=== PATIENT | female | born 1960 | race Caucasian/White ===

== ENCOUNTER 2019-04-17 11:32 | Day surgery (SDC) | payer MEDICAID, SELFPAY ==
[2019-04-16 13:34] VITALS: BMI 50.1
--- NOTE | 2019-04-16 13:48 | ANES.PREANE2 ---
Pre-Anesthetic Assessment Pre-Anesthetic Assessment: Height/Weight: Height 1.7 m Weight 145.15 kg Proposed Procedure: Operation Date: 04/17/19 13:15 Proposed Procedures p Median Nerve Release 87747 G56.03(Left) - Ezra Miller MD Was Beta Favian taken within 24 hours: N/A Social: Social History: No alcohol and No tobacco Exam: Pre-Anes Outpt Exam: alert, oriented x 3, clear to auscultation bilaterally and regular rate & rhythm Airway: Submandibular: WNL Cervical ROM: WNL MP: 2 Dentition: Full Pulmonary: Pulmonary: Asthma CV/HEM: CV/HEM: None reported : : None reported Hepatic: Hepatic: None reported GI: GI: None reported Metabolic: Metabolic: DM (Poorly controlled) and Morbid obesity Musc/skel: Musc/skel: Fibromyalgia and Weakness Anesthetic Plan: ASA status: 3 Anesthesia: MAC PFSH Anesthesia PFSH: Medical History (Updated 04/03/19 @ 12:57 by Ezra Miller MD) Benign essential hypertension Bilateral carpal tunnel syndrome Cerebrovascular accident COPD (chronic obstructive pulmonary disease) Diabetes mellitus GERD (gastroesophageal reflux disease) Hypothyroidism Infiltrating ductal carcinoma of left female breast Migraine Morbid obesity Other spondylosis with radiculopathy, lumbar region Sarcoidosis Surgical History (Updated 04/02/19 @ 15:16 by Ezra Miller MD) H/O bilateral oophorectomy H/O coronary angioplasty H/O: hysterectomy History of cholecystectomy Hx of appendectomy S/P CABG (coronary artery bypass graft) Family History (Updated 03/31/19 @ 13:50 by Zoey Aquino LPN) Father Cancer Diabetes Sister Cancer Diabetes Mother Diabetes Social History (Updated 03/31/19 @ 13:51 by Zoey Aquino LPN) Smoking and tobacco status: never smoked Alcohol intake: never Lives independently: Yes Marital status: Single Current occupational status: disabled History of recent travel: No Data Anesthesia Cardiac Studies: No Data to Display
[2019-04-17 12:09] VITALS: BP 176/118; PULSE 93; RESP 16; TEMP 37.6; O2SAT 96
[2019-04-17 12:24] LABS: Glucose Point of Care 326 mg/dL (70-110)
[2019-04-17] MEDS: sodium chloride 0.9% 1,000 ML 30 ML IV (12:29)
--- NOTE | 2019-04-17 12:39 | P.ANESUD_ITS ---
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 Gets radiation and has to do this surgery when her white count is higher, so would still like to proceed with surgery, given that she has this window of opportunity Last Intake: Intake Last Liquid Date 04/17/19 Last Liquid Time 07:00 Last Solid Date 04/16/19 Last Solid Time 17:00 Labs Last 48hrs: Laboratory Results - last 48 hr 04/17/19 12:17 POC Glucose 326 Vitals: Temperature 99.7 F H 04/17/19 12:09 Temperature Source Temporal Artery S can 04/17/19 12:09 Pulse Rate 93 04/17/19 12:09 Respiratory Rate 16 04/17/19 12:09 Blood Pressure 176/118 04/17/19 12:09 Blood Pressure Christen n 137 04/17/19 12:09 Pulse Oximetry 96 04/17/19 12:09 Oxygen Delivery Me thod 04/17/19 12:09 Exam: Pre-Anes Outpt Exam: alert, oriented x 3, clear to auscultation bilaterally and regular rate & rhythm Additional Exam Findings (including area of procedure): Severe claustrophbia - states she will fight when tied and panic with mask placement. Sever PADMA and has cold too. Coughing for 6 weeks now. Cardiac Studies: No Data to Display
[2019-04-17] MEDS: insulin regular-human 100 units/1 mL 10 UNIT IVP (13:05)
[2019-04-17] MEDS: vancomycin 1,000 MG in sodium chloride 0.9% 250 ML 250 MG IV (13:14)
--- NOTE | 2019-04-17 13:20 | W.PM.OPSUD ---
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
[2019-04-17 13:50] LABS: Glucose Point of Care 222 mg/dL (70-110)
--- NOTE | 2019-04-17 13:53 | SUR.PREOP ---
1200 Pt refused kashif hose and gripper socks,stated she doesn't wnat anything tight on her legs
--- NOTE | 2019-04-17 13:58 | P.OP_ITS ---
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
[2019-04-17] MEDS: neomycin-poly-bacitracin oint 28 gm 1 APPLIC TOPICAL (14:28)
[2019-04-17 14:49] VITALS: BP 98/63; PULSE 84; RESP 17; TEMP 36.7; O2SAT 96
[2019-04-17 14:55] VITALS: BP 111/68; PULSE 88; RESP 14; TEMP 36.7; O2SAT 96
[2019-04-17 15:02] VITALS: BP 116/72; PULSE 83; RESP 15; TEMP 36.6; O2SAT 98
[2019-04-17 15:17] VITALS: BP 106/79; PULSE 79; RESP 18; TEMP 36.6; O2SAT 98
[2019-04-17] MEDS: ondansetron 2 mg/ML SDV 2 mL 4 MG IVP (15:43)
--- NOTE | 2019-04-17 16:22 | SUR.PHASEII ---
1600 zofran effective for c/o nausea
--- NOTE | 2019-04-17 16:30 | PM.OP ---
Operative Report Date of procedure: April 17, 2019 Pre-op Diagnosis: Median nerve entrapment at the wrist Post-op diagnosis: same Procedure Done: Open release of the median nerve at the left wrist. Surgeon: Ezra Miller Anesthesia: General Estimated blood loss (mL): 5 IV fluids (mL): 300 Complications: none Condition: stable Disposition: PACU Brief History: The patient is a 58-year-old female with symptomatic, electrodiagnostically confirmed median nerve entrapment at the wrists. Electrodiagnostic studies demonstrated bilateral severe carpal tunnel syndrome. Symptoms progressed in spite of conservative management. After review of the diagnostic and treatment options with the risks/potential benefits/rationale for each, the patient requested to proceed with open release of the median nerve at the left wrist. Procedure: After routine preoperative evaluation and informed consent were obtained, the patient was taken to the Operating Room and positioned supine on the operating table. General anesthesia was recommended by the Anesthesia providers due to the patient's to severe anxiety, morbid obesity and respiratory issues. The patient was agreeable to this option. She was placed under general anesthesia by Anesthesia personnel and closely monitored during the procedure. The left upper extremity was extended on an arm board. The proposed palmar skin incision was marked with a sterile skin marker, beginning near the wrist crease and extending distally along a palmar crease to the mid palm. The left upper extremity was scrubbed with Betadine and prepped with DuraPrep from the fingertips to the axilla. A sterile stockinette was placed over the left upper extremity. The patient was draped with sterile towels and drapes. An opening was fashioned in the sterile stockinette over the palmar aspect of the left hand. Ioban surgical barrier was applied. The proposed incision site was infiltrated with 1% Xylocaine with Epinephrine. A skin incision was made with a sharp knife and carried down into the subcutaneous tissues. The markedly thickened transverse carpal ligament was identified and divided over the course of the median nerve in the palm. The nerve was directly visualized as the ligament was divided. Decompression was extended distally until the palmar fat pad was encountered. Proximally, the decompression was extended above the wrist crease utilizing fine Metzenbaum scissors. Decompression was verified to be adequate for a distance of greater than 2 centimeters proximal to the wrist crease. Extensive epineural adhesions were identified and were addressed with limited epineurolysis. At the completion of the decompression, no residual impingement or tethering of the median nerve was noted at the surgical site. The wound was then copiously irrigated with sterile saline and antibiotic irrigation. Hemostasis was ensured with the bipolar electrocautery. Wound closure was performed as a single layer utilizing 4-0 Nylon in a simple interrupted fashion. Antibiotic ointment was placed along the incision line. A bulky hand dressing was fashioned utilizing Kerlix fluffs, a Kerlix wrap, and an ANI/elastic bandage. The patient was awakened from general anesthesia, transferred onto the transport cart, and taken to the PACU for routine postoperative monitoring. The patient tolerated the procedure well. All sponge, needle and instrument counts were correct at the completion of the procedure.
== END 2019-04-17 16:20 | disposition home or self-care (01) ==
PROVIDERS: PCP Nurse Practitioner Family; Visit Provider Specialist
PROC: (CPT 64721; principal; 2019-04-17 13:05)
DX: G56.02 Carpal tunnel syndrome, left upper limb (principal); J45.909 Unspecified asthma, uncomplicated; E11.9 Type 2 diabetes mellitus without complications; M79.7 Fibromyalgia; I10 Essential (primary) hypertension; J44.9 Chronic obstructive pulmonary disease, unspecified; K21.9 Gastro-esophageal reflux disease without esophagitis; E03.9 Hypothyroidism, unspecified; E66.01 Morbid (severe) obesity due to excess calories; Z68.43 Body mass index [BMI] 50.0-59.9, adult; Z83.3 Family history of diabetes mellitus
CPT/HCPCS: 64721; 12345; 36416; 82962; 96365; 96374; 96375; J0330; J1815; J2001; J2405; J2704; J3010; J3370; J3490; J7030; J7050

== ENCOUNTER 2019-05-22 15:09 | Outpatient (CLI) | payer MEDICAID, SELFPAY ==
--- NOTE | 2019-05-22 15:17 | USCV_ITS ---
Liliam Reynaga Age: 58 Gender: F : 1960 Exam Date: 05/22/2019 15:29 Ordering Phys: Viviane Higgins MD Technologist: Chalo Tamez [place] [facility] [place]: HIGH RISK MEDS BP: 124 / 70 HR: 86 Rhythm: Sinus Technical Quality: Adequate MEASUREMENTS (Male / Female) Normal Values 2D ECHO LV Diastolic Diameter PLAX 5.2 cm 4.2 - 5.9 / 3.9 - 5.3 cm LV Systolic Diameter PLAX 3.3 cm IVS Diastolic Thickness 1.0 cm 0.6 - 1.0 / 0.6 - 0.9 cm IVS Systolic Thickness 1.7 cm LVPW Diastolic Thickness 1.3 cm 0.6 - 1.0 / 0.6 - 0.9 cm LVPW Systolic Thickness 1.2 cm LVOT Diameter 2.0 cm LV Ejection Fraction 2D Teich 67.3 % LV Ejection Fraction MOD 2C 47.7 % LV Ejection Fraction 2C AL 47.5 % LA Diameter 4.0 cm LA Width 3.9 cm LA Height 5.0 cm RA Width 3.4 cm RA Height 5.3 cm Aorta at Sinotubular Diameter 2.8 cm M-MODE LV Diastolic Diameter MM 6.4 cm 4.2 - 5.9 / 3.9 - 5.3 cm LV Systolic Diameter MM 4.8 cm LV Ejection Fraction MM Teich 48.1 % IVS Diastolic Thickness MM 1.3 cm 0.6 - 1.0 / 0.6 - 0.9 cm IVS Systolic Thickness MM 1.5 cm LVPW Diastolic Thickness MM 1.2 cm 0.6 - 1.0 / 0.6 - 0.9 cm LVPW Systolic Thickness MM 1.5 cm RV Diastolic Diameter MM 1.9 cm Aortic Annulus Diameter 3.0 cm LA Ao Ratio MM 1.4 MV E Point Septal Separation 1.1 cm DOPPLER AV Peak Velocity 167.0 cm/s LVOT Peak Velocity 92.0 cm/s AV Area Cont Eq vti 2.4 cm squared AV Area Cont Eq pk 1.8 cm squared MV Area PHT 5.8 cm squared Mitral E to A Ratio 1.0 MV E' Velocity 10.0 cm/s Mitral E to MV E' Ratio 7.5 Mitral E to LV E' Lateral Ratio 9.0 Mitral E to LV E' Septal Ratio 6.4 TR Peak Velocity 347.0 cm/s TR Peak Gradient 48.3 mmHg TV Peak E Velocity 138.0 cm/s Right Atrial Pressure 3.0 mmHg Pulmonary Artery Systolic Pressu 51.2 mmHg FINDINGS Left Ventricle Normal left ventricular cavity size. Normal left ventricular systolic function. No regional wall motion abnormalities. Left ventricular ejection fraction is estimated at 60 %. Grade I/IV diastolic dysfunction (abnormal relaxation filling pattern), normal to mildly elevated filling pressures. Right Ventricle The right ventricle is normal in size and function. Right Atrium The right atrium is normal in size. Left Atrium The left atrium is normal in size. Mitral Valve Structurally normal mitral valve without significant stenosis or prolapse. There is no mitral regurgitation. Aortic Valve Structurally normal aortic valve without significant sclerosis or stenosis. There is no aortic regurgitation. Tricuspid Valve Mild tricuspid valve regurgitation. Pulmonic Valve Structurally normal pulmonic valve without significant stenosis. There is no pulmonic regurgitation. Pericardium Normal pericardium without effusion. Aorta Normal ascending aorta dimension. CONCLUSIONS 1-Normal left ventricular cavity size. Normal left ventricular systolic function. No regional wall motion abnormalities. Left ventricular ejection fraction is estimated at 60 %. Grade I/IV diastolic dysfunction (abnormal relaxation filling pattern), normal to mildly elevated filling pressures. 2-Mild tricuspid valve regurgitation. 3-There is no pericardial effusion. 4-Right atrial pressure is around 5 mm of mercury. 5-No significant change since the prior echocardiogram study of 05/23/2013. Neville Morris MD (Electronically Signed) Final Date: 22 May 2019 17:52 S
== END 2019-05-22 15:10 | disposition home or self-care (01) ==
LOC: RAD 15:13
PROVIDERS: PCP Nurse Practitioner Family; Visit Provider Internal Medicine Medical Oncology
DX: Z79.899 Other long term (current) drug therapy (principal); I07.1 Rheumatic tricuspid insufficiency
CPT/HCPCS: 93306

== ENCOUNTER 2019-05-26 18:04 | Emergency (ER) | payer MEDICAID, SELFPAY ==
[2019-05-26 18:13] VITALS: BP 132/90; PULSE 88; RESP 18; TEMP 36.9; O2SAT 100; BMI 47.0
--- NOTE | 2019-05-26 18:44 | XR_ITS ---
WS: [id number] KNEE LEFT TECHNIQUE: 3 views of the left knee CLINICAL INFORMATION: trauma/fall COMPARISON: None. FINDINGS: Moderate degenerative arthritis medial compartment narrowing. Hypertrophic changes along the joint li ne. Soft tissue edema. Suprapatellar effusion. Hypertrophic patella. XR/XR knee LT 3V* [id number] IMPRESSION: 1. Moderate degenerative arthritis medial joint compartment and patellofemoral articulation. 2. Soft tissue edema with suprapatellar effusion. 3. No acute fractures
--- NOTE | 2019-05-26 18:44 | XR_ITS ---
WS: [id number] HIP WITH PELVIS LEFT TECHNIQUE: 3 views of the left hip with pelvis CLINICAL INFORMATION: trauma/fall COMPARISON: None. FINDINGS: Both hips are normal in appearance. Left hip is normal. Normal pubic rami. Degenerative arthritis low er lumbar spine. Surgical clips pelvic inlet. XR/XR hip LT 2-3V wo/w pel* [id number] IMPRESSION: Normal left hip
--- NOTE | 2019-05-26 18:44 | W.ED.FALL ---
HPI - Fall General: Chief Complaint: Fall Stated Complaint: KNEE, HIP PAIN Time Seen by Provider: 05/26/19 18:35 Source: patient Mode of arrival: EMS Limitations: no limitations History of Present Illness: HPI Narrative: Patient is a 58-year-old female who presents to ED today with complaints of left knee and left hip pain that she sustained following a fall. Patient states her cane got caught on the carpet causing her to fall. Patient denies striking her head, LOC, neck pain. She suffers from chronic back pain but this is not worse than her baseline. Patient denies any other injuries. MD complaint: fall Onset (ago): hour(s) Fall from: standing Fall witnessed: no Place fall occurred: home Loss of consciousness: None Prolonged down time: no Symptoms prior to fall: none Context: tripped/slipped Location of injury - extremities: Left: knee Severity: severe Associated symptoms-after fall: Reports no associated symptoms; Denies abdominal pain, chest pain, headache(s), lightheadedness or neck pain Review of Systems Eyes: Denies: change in vision or blurry vision Card: Denies: chest pain, palpitations, irregular heart rhythm, edema, lightheadedness, syncope or pre-syncope Resp: Denies: shortness of breath GI: Denies: abdominal pain Musc: Reports: back pain (chronic) and joint pain (L knee/hip); Denies: neck pain Neuro: Denies: headache, numbness in extremities, weakness in extremities or changes in sensation PFS ED PFSH: Medical History (Updated 05/26/19 @ 19:44 by MARCOS Connell) Benign essential hypertension Bilateral carpal tunnel syndrome Cerebrovascular accident COPD (chronic obstructive pulmonary disease) Diabetes mellitus GERD (gastroesophageal reflux disease) Hypothyroidism Infiltrating ductal carcinoma of left female breast Migraine Morbid obesity Other spondylosis with radiculopathy, lumbar region Sarcoidosis Surgical History (Updated 04/02/19 @ 15:16 by Ezra Miller MD) H/O bilateral oophorectomy H/O coronary angioplasty H/O: hysterectomy History of cholecystectomy Hx of appendectomy S/P CABG (coronary artery bypass graft) Family History (Updated 03/31/19 @ 13:50 by Zoey Aquino LPN) Father Cancer Diabetes Sister Cancer Diabetes Mother Diabetes Social History (Updated 03/31/19 @ 13:51 by Zoey Aquino LPN) Smoking and tobacco status: never smoked Alcohol intake: never Lives independently: Yes Marital status: Single Current occupational status: disabled History of recent travel: No Physical Exam Const: COMMON NORMALS: oriented x3, no limitations and alert GENERAL APPEARANCE: in distress (in pain) NUTRITIONAL APPEARANCE: obese morbidly obese HENMT: COMMON NORMALS: normocephalic and head/scalp atraumatic HEAD & SCALP: normocephalic and atraumatic Neck/C-Spine: COMMON NORMALS: full ROM CERVICAL SPINE: Yes cervical ROM normal, No pain with cervical ROM, No cervical spine tenderness and No paracervical muscle tenderness Chest: COMMONS NORMALS: inspection of chest normal and palpation of chest normal Resp: COMMON NORMALS: normal respiratory effort and clear to auscultation bilaterally AUSCULTATION: clear to auscultation bilaterally Cardio: COMMON NORMALS: regular rate and regular rhythm RATE: regular rate RHYTHM: regular rhythm Back/Pelvis: OTHER: chronic lower lumbar pain-states this is at baseline Extremity: LEFT LOWER EXTREMITY: Yes knee joint (TTP/swelling/bruising noted to L anterior knee) OTHER: TTP L posterior hip; exam limited due to pts body habitus Neuro: COMMON NORMALS: oriented x3 SENSORIUM/ORIENTATION: Yes alert Course Vital Signs: Vital signs: Vital Signs Temperature 98.5 F 05/26/19 18:13 Pulse Rate 88 05/26/19 18:13 Respiratory Rate 18 05/26/19 19:11 Blood Pressure 132/90 05/26/19 18:13 Pulse Oximetry 100 05/26/19 18:13 MDM - Fall Imaging Data^: L hip/pelvis: My impression: NAD L knee XR: My impression: NAD Discharge Plan Discharge Patient Disposition: Home, Self-Care Clinical Impression: Fall on same level from tripping, Acute pain of left hip Contusion of left knee Qualifiers: Encounter type: initial encounter Qualified Code(s): S80.02XA - Contusion of left knee, initial encounter Condition: Stable Prescriptions: No Action valacyclovir 1 gram tablet 2,000 mg PO Q12H RF: 0 torsemide 5 mg tablet 10 mg PO DAILY PRN (Reason: Edema) RF: 0 albuterol sulfate 0.63 mg/3 mL solution for nebulization 0.63 mg INHALATION Q6H PRN (Reason: Shortness Of Breath Or Wheezing) RF: 0 furosemide [Lasix] 40 mg tablet 40 mg PO DAILY PRN (Reason: Edema) RF: 0 hydromorphone 2 mg Tablet 2 mg PO TID PRN (Reason: Pain, Mild) RF: 0 Lantus U-100 Insulin 100 unit/mL Solution 72 unit SUBCUT DAILY RF: 0 metformin 1,000 mg Tablet Extended Release 24hr 1,000 mg PO DAILY RF: 0 Humalog Mix 75-25 KwikPen liquid See Rx Instructions .ROUTE .COMPLEX RF: 0 Discharge Orders: Discharge Order (Routine); Ordered 05/26/19 Ordered By: Tiny Kenyon Referrals: [facility] [Other] Luis Eduardo Huerta NP [Primary Care Provider] - Activity Restrictions/Additional Instructions: Weightbearing as tolerated. Can continue your normal home pain medications. Please follow-up with your primary care provider in a week for continued pain. Coding Level of Care Code ED Water Conservation Specialist for Zevg Fwd Exam Detailed
[2019-05-26 19:11] VITALS: RESP 18
[2019-05-26] MEDS: HYDROmorphone 1 mg/mL INJ 1 mL SUBCUT (19:11)
[2019-05-26 20:38] VITALS: BP 142/88; PULSE 90; RESP 20; O2SAT 94
== END 2019-05-26 20:39 | disposition home or self-care (01) ==
PROVIDERS: Emergency Provider Physician Assistant; PCP Nurse Practitioner Family
DX: S80.02XA Contusion of left knee, initial encounter (principal); W01.0XXA Fall on same level from slipping, tripping and stumbling without subsequent striking against object, initial encounter; Z79.4 Long term (current) use of insulin; M25.552 Pain in left hip; I10 Essential (primary) hypertension; Z09 Encounter for follow-up examination after completed treatment for conditions other than malignant neoplasm; Z86.73 Personal history of transient ischemic attack (TIA), and cerebral infarction without residual deficits; J44.9 Chronic obstructive pulmonary disease, unspecified; E11.9 Type 2 diabetes mellitus without complications; Z98.61 Coronary angioplasty status; Z95.1 Presence of aortocoronary bypass graft
CPT/HCPCS: 12345; 73502; 73562; 96372; 99281; 99284; J1170

== ENCOUNTER → 2019-06-12 12:59 | Outpatient (BNVA) | payer MEDICAID, SELFPAY | PROVIDERS: PCP Nurse Practitioner Family; Visit Provider Podiatrist Foot & Ankle Surgery | DX: M79.672 Pain in left foot (principal) | CPT/HCPCS: 73630 ==

== ENCOUNTER 2019-06-12 13:50 | Outpatient (CLI) | payer MEDICAID, SELFPAY ==
--- NOTE | 2019-06-12 14:18 | XR_ITS ---
WS: [id number] LEFT FOREARM 2 VIEWS HISTORY: ARM PAIN, LEFT COMPARISON: None available. No fracture or dislocation. No foreign body or joint effusion. Diffuse soft tissue edema over the posterior forearm. XR/XR forearm LT 2V [id number] IMPRESSION: Soft tissue edema. No fracture.
--- NOTE | 2019-06-12 14:18 | XR_ITS ---
WS: [id number] LEFT ELBOW: 3 VIEW(S) TECHNIQUE: AP, oblique and lateral. HISTORY: ARM PAIN, LEFT COMPARISON: None available. No acute fractures or dislocation. Well-corticated osteophyte or prior injury along the lateral epico ndyle. Not likely an acute fracture. No joint effusion. Diffuse soft tissue edema over the posterior elbow. XR/XR elbow LT min 3V* [id number] IMPRESSION: Soft tissue edema. No fracture.
--- NOTE | 2019-06-12 14:18 | XR_ITS ---
WS: [id number] LEFT HUMERUS: 2 VIEW(S) TECHNIQUE: AP and lateral. HISTORY: LEFT ARM PAIN COMPARISON: 10/30/2016 Radiographs are limited by patient's clinical condition and inability to move. No acute fracture or dislocation. No joint or soft tissue abnormality. No foreign bodies and visualized upper thorax is unremarkable. XR/[place] [id number] IMPRESSION: Normal LEFT humerus.
== END 2019-06-12 13:51 | disposition home or self-care (01) ==
LOC: RAD 13:52
PROVIDERS: PCP Nurse Practitioner Family; Visit Provider Nurse Practitioner Family
DX: M79.602 Pain in left arm (principal); R60.9 Edema, unspecified
CPT/HCPCS: 73060; 73080; 73090

== ENCOUNTER 2019-07-07 11:48 | Day surgery (SDC) | payer MEDICAID, SELFPAY ==
[2019-07-04 14:44] VITALS: BMI 49.6
[2019-07-07] VITALS (8 sets, daily range): BP systolic 111–146; BP diastolic 77–99; PULSE 79–87; RESP 10–22; TEMP 36.3–36.6; O2SAT 92–98
--- NOTE | 2019-07-07 12:35 | P.HPUD_ITS ---
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
--- NOTE | 2019-07-07 13:02 | ANES.PREANE2 ---
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 Proposed Procedure: Operation Date: 07/07/19 13:15 Proposed Procedures p Open release of the median nerve at the right wrist (34942) G56.03(Right) - Ezra Miller MD Familial anesthetic complications: awareness during her gallbladder surgery Was Beta Favian taken within 24 hours: N/A Last intake: NPO > 8 hrs Social: Social History: No alcohol and No tobacco Exam: Pre-Anes Outpt Exam: alert, oriented x 3, clear to auscultation bilaterally and regular rate & rhythm Airway: Cervical ROM: WNL MP: 2 Dentition: Other Additional comments: Nosebleeds and congestion (b/L from chemo) Pulmonary: Pulmonary: Asthma (With mulitple exacerbations) CV/HEM: CV/HEM: CHF and HTN : : None reported Hepatic: Hepatic: None reported GI: GI: None reported Metabolic: Metabolic: DM, Morbid obesity and Thyroid Neuropsych: Neuropsych: CVA (receptive aphasia, L sided weakness, speech impiarment) and TIA Anesthetic Plan: ASA status: 3 Anesthesia: General Risk of > 500 ml blood loss (7ml/kg in children): No PFSH Anesthesia PFSH: Medical History (Updated 06/16/19 @ 20:56 by Austin Ledesma DPM) Benign essential hypertension Bilateral carpal tunnel syndrome Cerebrovascular accident Chronic fatigue COPD (chronic obstructive pulmonary disease) Diabetes mellitus DJD (degenerative joint disease) GERD (gastroesophageal reflux disease) Hypothyroidism Infiltrating ductal carcinoma of left female breast Lymphadenopathy Migraine Morbid obesity Other spondylosis with radiculopathy, lumbar region Sarcoidosis Surgical History H/O bilateral oophorectomy H/O coronary angioplasty H/O: hysterectomy History of cholecystectomy Hx of appendectomy S/P CABG (coronary artery bypass graft) Family History Father Cancer Diabetes Sister Cancer Diabetes Mother Diabetes Social History Smoking and tobacco status: never smoked Alcohol intake: never Lives independently: Yes Marital status: Single Current occupational status: disabled History of recent travel: No Data Anesthesia Cardiac Studies: No Data to Display
[2019-07-07] MEDS: sodium chloride 0.9% 1,000 ML 30 ML IV (13:04)
[2019-07-07 13:21] LABS: Basophils % 0.3 %; Eosinophils # 0.2 10^3/uL (0.0-0.8); Eosinophils % 2.3 %; Hematocrit 40.5 % (37.0-47.0); Hemoglobin 12.4 g/dL (11.5-15.3); Lymphocytes % 14.8 %; Mean Corpuscular HGB Conc 30.6 g/dL (30.0-36.0); Mean Corpuscular Hemoglobin 26.8 pg (28.0-34.0); Mean Corpuscular Volume 87.5 fL (81-99); Mean Platelet Volume 8.9 fL (7.4-10.4); Monocytes # 0.6 10^3/uL (0.2-0.9); Monocytes % 8.8 %; Neutrophils # 4.7 10^3/uL (1.8-7.7); Neutrophils % 73.2 %; Nucleated Red Blood Cells % 0 %; Platelet Count 212 10^3/cmm (130-400); Red Blood Count 4.63 10^6/uL (4.1-5.3); Red Cell Distribution Width 14.9 % (12.1-15.1); White Blood Count 6.5 10^3/uL (4.0-10.0)
--- NOTE | 2019-07-07 13:23 | P.OP_ITS ---
Brief Operative Note: Date of procedure: 07/07/19 Pre-op diagnosis: Median nerve entrapment at the right wrist Post-op diagnosis: same Procedure Done: Open Release of median nerve at right wrist. Surgeon: Ezra Miller Estimated blood loss (mL): 5 Complications: None Post-op Plan: Home per Ambulatory Surgery protocol. Condition: stable Disposition: PACU Coding Level of Care Code Acute Tobacco Wetter for Hector Aguirre
[2019-07-07] MEDS: midazolam 1 mg/mL INJ 2 mL 2 MG IVP (13:25)
[2019-07-07] MEDS: neomycin-poly-bacitracin oint 28 gm 1 APPLIC TOPICAL (14:06)
--- NOTE | 2019-07-07 14:33 | SUR.PHASEI ---
1431 PATIENT TO PACU AT THIS TIME FROM OR. RR EVEN AND UNLABORED. PLACED ON SIMPLE MASK AT 8L, SPO2 98%. DRESSING CDI TO RIGHT WRIST WITH ANI WRAP AND SLING IN PLACE.
--- NOTE | 2019-07-07 14:53 | SUR.PHASEI ---
1450 PATIENT TO OPS AT THIS TIME. RR EVEN AND UNLABORED. DRESSING INTACT TO RIGHT WRIST WITH SLING IN PLACE.
[2019-07-07 15:05] LABS: Glucose Point of Care 146 mg/dL (70-110)
--- NOTE | 2019-07-07 16:14 | PM.OP ---
Operative Report Date of procedure: July 07, 2019 Pre-op Diagnosis: Median nerve entrapment at the wrist Post-op diagnosis: same Procedure Done: Open release of the median nerve at the right wrist. Implants: none Specimens removed/disposition: none Pathology: none sent Surgeon: Ezra Miller Anesthesia: General Estimated blood loss (mL): 5 IV fluids (mL): 200 Complications: None. Condition: stable Disposition: PACU Brief History: The patient is a 58-year-old female with symptomatic, electrodiagnostically confirmed bilateral carpal tunnel syndrome. Symptoms progressed and were refractory to conservative treatment measures. She underwent open release of the median nerve at the left wrist on 04/17/2019. After review of the diagnostic and treatment options with the risks/potential benefits/rationale for each, the patient requested to proceed with open release of the median nerve at the right wrist. Procedure: After routine preoperative evaluation and informed consent were obtained, the patient was taken to the Operating Room and positioned supine on the operating table. She was placed under general endotracheal anesthesia by Anesthesia personnel due to severe anxiety and refusal/inability to tolerate the procedure under sedation. The right upper extremity was extended on an arm board. A proposed incision was marked with a sterile skin marker. The extremity was scrubbed with Betadine and prepped with DuraPrep from the fingertips to the axilla. Sterile towels, sterile drapes, and a sterile stockinette were utilized for draping of the operative field. An opening was fashioned in the sterile stockinette over the palmar aspect of the right hand. An [place] surgical barrier was placed. The proposed incision site was infiltrated with 1% Xylocaine with Epinephrine. A skin incision was made and carried down into the subcutaneous tissues. Self-retaining retractors were placed. The markedly thickened transverse carpal ligament was divided over the course of the median nerve in the palm. The ligament was divided distally until the palmar fat pad was encountered. Proximally, the ligament was divided with fine Metzenbaum scissors to a point approximately 2 centimeters above the wrist crease. There were mild diffuse epineural adhesions, which were treated with limited adhesiolysis. There was no evidence of residual median nerve impingement or entrapment within the visualized segment of the nerve at the completion of the procedure. The wound was then copiously irrigated with antibiotic irrigation. Hemostasis was ensured with the bipolar electrocautery. Wound closure was performed as a single layer utilizing 4-0 Nylon in a simple interrupted fashion. Antibiotic ointment was placed along the incision line. A bulky hand dressing was fashioned utilizing a combination of Kerlix fluffs, a Kerlix wrap, and an ANI/elastic bandage. The patient was transported to the Ambulatory Surgery Area for discharge home, as per the Ambulatory Surgery protocol. The patient tolerated the procedure well. All sponge, needle, and instrument counts were correct at the completion of the procedure.
== END 2019-07-07 15:44 | disposition home or self-care (01) ==
PROVIDERS: PCP Nurse Practitioner Family; Visit Provider Specialist
PROC: (CPT 64721; principal; 2019-07-07 13:15)
DX: G56.01 Carpal tunnel syndrome, right upper limb (principal); J45.909 Unspecified asthma, uncomplicated; I11.0 Hypertensive heart disease with heart failure; I50.9 Heart failure, unspecified; E11.9 Type 2 diabetes mellitus without complications; E66.01 Morbid (severe) obesity due to excess calories; Z68.42 Body mass index [BMI] 45.0-49.9, adult; I69.854 Hemiplegia and hemiparesis following other cerebrovascular disease affecting left non-dominant side; J44.9 Chronic obstructive pulmonary disease, unspecified; E03.9 Hypothyroidism, unspecified; Z95.1 Presence of aortocoronary bypass graft; M19.90 Unspecified osteoarthritis, unspecified site; G47.33 Obstructive sleep apnea (adult) (pediatric); Z87.891 Personal history of nicotine dependence
CPT/HCPCS: 64721; 12345; 36416; 82962; 85025; 96365; 96374; J0330; J2001; J2250; J2405; J2704; J3010; J3370; J3490; J7030; J7050; T1015-U1

== ENCOUNTER 2019-08-14 15:03 | Outpatient (CLI) | payer MEDICAID, SELFPAY ==
--- NOTE | 2019-08-14 | XRR_ITS ---
PROCEDURE INFORMATION: Exam: XR Right Knee Exam date and time: 08/14/2019 4:25 PM Age: 59 years old Clinical indication: Pain; Knee; Right; Additional info: Joint pain TECHNIQUE: Imaging protocol: XR Right knee. Views: 3 views. COMPARISON: US SoftTissue/Extrem Lmt [id number] 08/21/2017 12:59 PM FINDINGS: Bones/joints: Negative for acute bony abnormality. There is narrowing of the medial compartment consistent with osteoarthritis. Soft tissues: Normal. XR/XR knee RT 3V* [id number] IMPRESSION: No acute findings. Mild osteoarthritis
== END 2019-08-14 15:04 | disposition home or self-care (01) ==
PROVIDERS: PCP Nurse Practitioner Family; Visit Provider Nurse Practitioner Family
DX: M25.561 Pain in right knee (principal); M17.11 Unilateral primary osteoarthritis, right knee
CPT/HCPCS: 73562

== ENCOUNTER 2019-09-03 18:09 | Emergency (ER) | payer MEDICAID, SELFPAY ==
[2019-09-03 18:23] VITALS: BP 155/89; PULSE 95; RESP 16; TEMP 36.3; O2SAT 97; BMI 50.5
--- NOTE | 2019-09-03 18:35 | ED_ITS ---
HPI - Fall General: Chief Complaint: Fall Stated Complaint: fall Time Seen by Provider: 09/03/19 18:34 History of Present Illness: HPI Narrative: Patient is a 59-year-old female comes to the ED with right knee pain, right flank pain, dysuria and diarrhea after having a fall. Patient has a past medical history of hypertension, CVA with residual right sided weakness, breast cancer left side with left side masectomy, GERD, diabetes and COPD. Fall occurred 4 days ago. Fall happened when she was transferring out of her vehicle. She twisted her right knee and fell straight down and her right flank hit seat in part of the car. She now has moderate to severe pain in her right knee and in her right flank/kidney area. Ever since her fall she has had diarrhea. In the last 24 hours, she started having some dysuria. Denies any blood in the urine. Associated symptoms-after fall: Denies abdominal pain, chest pain, headache(s), hematuria or neck pain Review of Systems Const: Denies: fever(s), chills or fatigue Eyes: Denies: change in vision or eye discomfort ENMT: Denies: throat pain, odynophagia, nasal discharge or nasal congestion Card: Denies: chest pain, palpitations, edema, swelling of feet/ankles, dyspnea on exertion or orthopnea Resp: Denies: dyspnea, productive cough or non-productive cough GI: Reports: diarrhea; Denies: abdominal pain, nausea, vomiting, constipation or hematochezia : Reports: flank pain (right side) and dysuria; Denies: hematuria Musc: Reports: extremity pain (right knee) and joint pain (right knee); Denies: neck pain, back pain or extremity swelling Skin/Breast: Denies: rash or new lesions Neuro: Denies: headache(s), numbness in extremities or weakness in extremities PFSH ED PFSH: Medical History Benign essential hypertension Bilateral carpal tunnel syndrome Cerebrovascular accident Chronic fatigue COPD (chronic obstructive pulmonary disease) Diabetes mellitus DJD (degenerative joint disease) GERD (gastroesophageal reflux disease) Hypothyroidism 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 07/07/2019 Dr. Emily Miller. Open release of the median nerve at the right wrist. Family History Father Cancer Diabetes Sister Cancer Diabetes Mother Diabetes Social History Smoking and tobacco status: never smoked Alcohol intake: never Lives independently: Yes Marital status: Single Current occupational status: disabled History of recent travel: No Physical Exam Const: COMMON NORMALS: patient oriented x3 and alert GENERAL APPEARANCE: cooperative; not comfortable (Uncomfortable due to pain.) NUTRITIONAL APPEARANCE: obese morbidly obese HENMT: COMMON NORMALS: normocephalic HEAD & SCALP: normocephalic MOUTH: Normal oral and palatal mucosa present THROAT: posterior oropharynx normal and uvula midline Eye: COMMON NORMALS: Equal, round and reactive pupils present PUPIL: Yes Equal, round and reactive pupils present Neck/C-Spine: COMMON NORMALS: supple GENERAL: Yes normal visual inspection Resp: COMMON NORMALS: normal respiratory effort, No retractions, No use of accessory muscles and clear to auscultation bilaterally AUSCULTATION: clear to auscultation bilaterally Cardio: COMMON NORMALS: regular rate, regular rhythm, S1 normal heart sound present, S2 normal heart sound present, No gallops present (Cardio), No clicks present (Cardio), No murmurs present (Cardio) and Peripheral pulses 2+ throughout RATE: regular rate RHYTHM: regular rhythm HEART SOUNDS: S1 normal heart sound present and S2 normal heart sound present PERIPHERAL PULSES: Peripheral pulses 2+ throughout GI: COMMON NORMALS: Normal to inspection, nondistended, normoactive bowel sounds present, Soft to palpation, non-tender and no masses PALPATION: Yes Soft to palpation : BLADDER/KIDNEY EXAM: Yes CVA tenderness on the right Back/Pelvis: GENERAL BACK: Yes CVA tenderness Extremity: RIGHT LOWER EXTREMITY: Yes knee joint Right knee: Yes inspection (Some mild edema around the right knee. No ecchymosis seen.), Yes palpation (Tender on medial aspect of right knee and over meniscus.), Yes ROM (Limited due to pain) and Yes neurovascular exam (intact) Neuro: COMMON NORMALS: patient oriented x3 and moves all extremities SENSORIUM/ORIENTATION: Yes alert Skin: GENERAL SKIN EXAM: dry skin Course Vital Signs: Vital signs: Vital Signs Temperature 97.9 F 09/03/19 23:11 Pulse Rate 60 09/03/19 23:11 Respiratory Rate 16 09/03/19 23:11 Blood Pressure 132/76 09/03/19 23:11 Pulse Oximetry 98 09/03/19 23:11 MDM - Fall MDM Narrative: Medical decision making narrative: Patient is a 59-year-old female who comes to the ED with right knee and right flank pain after a fall. Patient has a past medical history of breast cancer, prior stroke with residual right-sided weakness, diabetes, COPD and obesity. Patient also describes having some dysuria and diarrhea as well. Right knee x-ray was performed and showed no acute fractures or findings. CT of the abdomen showed no acute findings but did notate a hypodense lesion on the liver. I discussed CT findings and the lesion on the liver with the patient and I told her to contact her oncologist tomorrow about findings. Patient was also sent home with a CD of CT images to give to oncologist. White blood cells were 7.1 today. UA showed some white blood cells, bacteria and RBCs, so combined with her dysuria symptoms I am going to treat her for UTI. Patient was given a prescription for Macrobid. I told patient to follow-up with her PCP in 5 to 7 days for reevaluation. I told patient that right knee x-ray ruled out any fractures but she might need further outpatient imaging to rule out any soft tissue damage to right knee, which can be coordinated by PCP. Patient understood and agreed with plan. Return to ED precautions given. Lab Data: Attestation: I reviewed the patient's lab results. Labs: Lab Results 09/03/19 09/03/19 09/03/19 Range/Units 19:40 19:40 20:00 WBC 7.1 (4.0-10.0) 10^3/ uL RBC 5.03 (4.1-5.3) 10^6/u L Hgb 13.5 (11.5-15.3) g/dL Hct 43.0 (37.0-47.0) % MCV 85.5 (81-99) fL MCH 26.8 L (28.0-34.0) pg MCHC 31.4 (30.0-36.0) g/dL RDW 15.8 H (12.1-15.1) % Plt Count 224 (130-400) 10^3/c mm MPV 9.1 (7.4-10.4) fL Neut % (Auto) 73.0 % Lymph % (Auto) 17.7 % Mcclain % (Auto) 6.9 % Eos % (Auto) 1.4 % Baso % (Auto) 0.3 % Neut # (Auto) 5.16 (1.8-7.7) 10^3/u L Lymph # (Auto) 1.3 (0.8-4.8) 10^3/u L Mcclain # (Auto) 0.5 (0.2-0.9) 10^3/u L Eos # (Auto) 0.1 (0.0-0.8) 10^3/u L Baso # (Auto) 0.0 (0.0-0.1) 10^3/u L Nucleated RBC % (a uto) 0 % Nucleated RBCs # 0.0 /100WBC Sodium 139 (136-145) mmol/L Potassium 4.1 (3.5-5.1) mmol/L Chloride 98 (98-107) mmol/L Carbon Dioxide 29 (22-29) mmol/L Anion Gap 16.1 (5-19) BUN 23 H (6-20) mg/dL Creatinine 1.0 H (0.5-0.9) mg/dL GFR Calculation 56.9 L (90-130) mL/min Glucose 304 H (65-115) mg/dL Calculated Osmolal ity 296 H (285-295) mOsm/k g Calcium 9.8 (8.5-10.5) mg/dL Total Bilirubin 0.2 (0.15-1.2) mg/dL AST 12 (0-32) U/L ALT 25 (0-33) U/L Alkaline Phosphata se 112 H (35-105) IU/L Total Protein 7.1 (6.6-8.7) g/dL Albumin 4.0 (3.5-5.2) g/dL Globulin 3.1 (1.3-4.6) g/dL Urine Color Yellow (Yellow) Urine Appearance Hazy A (CLEAR) Urine pH 5 (5-7) Ur Specific Gravit y 1.020 (1.005-1.030) Urine Protein Neg (Negative) Urine Glucose (UA) Norm (Normal) Urine Ketones Negative (Negative) Urine Blood Neg (Negative) Urine Nitrate Negative (Negative) Urine Bilirubin Neg (NEGATIVE) Urine Urobilinogen Norm (Negative) mg/dL Ur Leukocyte Colleen ase 2+ H (Negative) Urine RBC 0-4 H (0-2) /hpf Urine WBC 10-15 H (0-5) /hpf Ur Squamous Epith Cells 10-15 H (0-5) Amorphous Sediment Not Reportable Urine Bacteria 1+ H (NONE) Hyaline Casts 80-100 H Imaging Data^: Xray Ortho: Attestation: I personally reviewed and interpreted this imaging study as follows: Radiologist's impression: [place] [address] XRay Report Signed Patient: Liliam Reynaga Unit #: [id number] : 1960 Age/Sex: 59 / F ADM Date: 09/03/19 Loc: ER Room/Bed: Attending Dr: Ordering Provider/Ordering MD: Rodrigo Fairchild Date of Service: 09/03/19 Procedure(s): XR knee RT 3V* [id number] Accession Number(s): [id number] Report Number: [id number] PROCEDURE INFORMATION: Exam: XR Right Knee Exam date and time: 09/03/2019 7:30 PM Age: 59 years old Clinical indication: Injury or trauma; Fall; Initial encounter; Blunt trauma; Knee; Right; Additional info: Fall injury with pain TECHNIQUE: Imaging protocol: XR Right knee. Views: 3 views. COMPARISON: CR XR knee RT 3V* [id number] 08/14/2019 4:15 PM FINDINGS: Moderate osteoarthritis changes are noted, which are most prominent in the medial joint space where joint space narrowing, eburnation and osteophytosis are observed. No fracture or dislocation. XR/XR knee RT 3V* [id number] IMPRESSION: No fracture or dislocation. Moderate osteoarthritis. Dictated By: Ezra Lazcano MD Signed By: Ezra Lazcano MD Signed Date/Time: 09/03/192046 DD/ 45 CT Abd/Pel: Attestation: I personally reviewed and interpreted this imaging study as follows: Radiologist's impression: [facility] [address] [place] [address] CT Scan Report Signed Patient: Liliam Reynaga Unit #: [id number] : 1960 Age/Sex: 59 / F ADM Date: 0 Loc: ER Room/Bed: Attending Dr: Ordering Provider/Ordering MD: Rodrigo Fairchild Date of Service: 09/03/19 Procedure(s): CT abdomen pelvis w con* [id number] Accession Number(s): [id number] Report Number: [id number] PROCEDURE INFORMATION: Exam: CT Abdomen And Pelvis With Contrast Exam date and time: 09/03/2019 7:55 PM Age: 59 years old Clinical indication: Abdominal pain; Prior surgery; Additional info: Right flank pain and R CVA tenderness with dysuria, diarrhea TECHNIQUE: Imaging protocol: Computed tomography of the abdomen and pelvis with intravenous contrast. Radiation optimization: All CT scans at this facility use at least one of these dose optimization techniques: automated exposure control; mA and/or kV adjustment per patient size (includes targeted exams where dose is matched to clinical indication); or iterative reconstruction. Contrast material: OMNI 300; Contrast volume: 95 ml; Contrast route: INTRAVENOUS (IV); COMPARISON: CT abdomen pelvis w con* [id number] 08/13/2017 12:02 PM RADIATION DOSE METRICS: Total DLP (mGy-cm): 2092.88 FINDINGS: Liver: A 12 mm indeterminate hypodense lesion is present in segment III of the liver. The liver is mildly enlarged. Gallbladder and bile ducts: The gallbladder has been removed. No biliary ductal dilatation. Pancreas: Normal. No ductal dilation. Spleen: Normal. No splenomegaly. Adrenals: Normal. No mass. Kidneys and ureters: Normal. No hydronephrosis. Stomach and bowel: A large amount of stool is present in the colon. No intestinal obstruction. Appendix: No evidence of appendicitis. Intraperitoneal space: Unremarkable. No free air. No significant fluid collection. Vasculature: Unremarkable. No abdominal aortic aneurysm. Lymph nodes: Unremarkable. No enlarged lymph nodes. Bladder: Unremarkable as visualized. Reproductive: The uterus is absent. Bones/joints: Unremarkable. No acute fracture. Soft tissues: Surgical changes of hernia repair are seen in the infraumbilical region. CT/CT abdomen pelvis w con* [id number] IMPRESSION: 1. Constipation. 2. Indeterminate hypodense liver lesion. CT or MRI liver protocol may allow further assessment. Radiation Dose CTDIVOL = (mGy): DLP = 2092.88 (mGy-cm) Dictated By: Ezra Lazcano MD Signed By: Ezra Lazcano MD Signed Date/Time: 09/03/192130 DD/ 28 Discharge Plan Discharge Patient Disposition: Home Clinical Impression: UTI (urinary tract infection) Qualifiers: Urinary tract infection type: acute cystitis Hematuria presence: with hematuria Qualified Code(s): N30.01 - Acute cystitis with hematuria Knee pain, right Qualifiers: Chronicity: acute Qualified Code(s): M25.561 - Pain in right knee Back pain Qualifiers: Back pain location: low back pain Chronicity: acute Back pain laterality: right Sciatica presence: without sciatica Qualified Code(s): M54.5 - Low back pain Condition: Stable Prescriptions: New Macrobid 100 mg capsule 100 mg PO BID 7 Days Qty: 14 RF: 0 No Action glipizide 10 mg tablet 10 mg PO DAILY RF: 0 valacyclovir 1 gram tablet 2,000 mg PO Q12H RF: 0 torsemide 5 mg tablet 10 mg PO DAILY PRN (Reason: Edema) RF: 0 albuterol sulfate 0.63 mg/3 mL solution for nebulization 0.63 mg INHALATION Q6H PRN (Reason: Shortness Of Breath Or Wheezing) RF: 0 furosemide [Lasix] 40 mg tablet 40 mg PO DAILY PRN (Reason: Edema) RF: 0 (DME) Diabetic Shoes See Rx Instructions .ROUTE .MEDSUPPLY Qty: 1 RF: 0 hydromorphone 2 mg Tablet 2 mg PO TID PRN (Reason: Pain, Mild) RF: 0 metformin 1,000 mg Tablet Extended Release 24hr 1,000 mg PO DAILY RF: 0 bupropion HCl 150 mg tablet sustained-release 12 hr 150 mg PO DAILY RF: 0 folic acid 20 mg Capsule 20 mg PO DAILY RF: 0 diclofenac sodium 50 mg Tablet,Delayed Release (Dr/Ec) 50 mg PO DAILY RF: 0 Lyrica 200 mg capsule 200 mg PO TID RF: 0 biotin 2,500 mcg Capsule 2,500 mcg PO DAILY RF: 0 Discharge Orders: Discharge Order (Routine); Ordered 09/03/19 Ordered By: Rodrigo Fairchild Referrals: Luis Eudardo Huerta NP [Primary Care Provider] - Discharge Diet: Regular Discharge Activity: Increase activity as tolerated Patient Instructions: Urinary Tract Infection in Women (ED), Knee Pain (ED), Back Pain (ED) Activity Restrictions/Additional Instructions: Follow-up with PCP in 5 to 7 days. Contact your oncologist tomorrow to let them know about the CT findings of a 12 mm hypodense lesion on the liver. We are sending you home with a CD of the CT images. Continue taking home medications as prescribed. Mom also sending you home with a prescription for Macrobid to treat UTI. Ice rest and elevate right knee. Apply ice and or heat on back to help with pain. Return to the ER or your medical provider if condition worsens. Please read and understand discharge instructions. If any questions, please ask. Discharge Date/Time: 09/03/19 23:15 Coding Level of Care Code ED General Assignment Reporter for Hector Fwd Exam Comprehensive
--- NOTE | 2019-09-03 19:01 | XRR_ITS ---
PROCEDURE INFORMATION: Exam: XR Right Knee Exam date and time: 09/03/2019 7:30 PM Age: 59 years old Clinical indication: Injury or trauma; Fall; Initial encounter; Blunt trauma; Knee; Right; Additional info: Fall injury with pain TECHNIQUE: Imaging protocol: XR Right knee. Views: 3 views. COMPARISON: CR XR knee RT 3V* [id number] 08/14/2019 4:15 PM FINDINGS: Moderate osteoarthritis changes are noted, which are most prominent in the medial joint space where joint space narrowing, eburnation and osteophytosis are observed. No fracture or dislocation. XR/XR knee RT 3V* [id number] IMPRESSION: No fracture or dislocation. Moderate osteoarthritis.
--- NOTE | 2019-09-03 19:07 | CTR_ITS ---
PROCEDURE INFORMATION: Exam: CT Abdomen And Pelvis With Contrast Exam date and time: 09/03/2019 7:55 PM Age: 59 years old Clinical indication: Abdominal pain; Prior surgery; Additional info: Right flank pain and R CVA tenderness with dysuria, diarrhea TECHNIQUE: Imaging protocol: Computed tomography of the abdomen and pelvis with intravenous contrast. Radiation optimization: All CT scans at this facility use at least one of these dose optimization techniques: automated exposure control; mA and/or kV adjustment per patient size (includes targeted exams where dose is matched to clinical indication); or iterative reconstruction. Contrast material: OMNI 300; Contrast volume: 95 ml; Contrast route: INTRAVENOUS (IV); COMPARISON: CT abdomen pelvis w con* [id number] 08/13/2017 12:02 PM RADIATION DOSE METRICS: Total DLP (mGy-cm): 2092.88 FINDINGS: Liver: A 12 mm indeterminate hypodense lesion is present in segment III of the liver. The liver is mildly enlarged. Gallbladder and bile ducts: The gallbladder has been removed. No biliary ductal dilatation. Pancreas: Normal. No ductal dilation. Spleen: Normal. No splenomegaly. Adrenals: Normal. No mass. Kidneys and ureters: Normal. No hydronephrosis. Stomach and bowel: A large amount of stool is present in the colon. No intestinal obstruction. Appendix: No evidence of appendicitis. Intraperitoneal space: Unremarkable. No free air. No significant fluid collection. Vasculature: Unremarkable. No abdominal aortic aneurysm. Lymph nodes: Unremarkable. No enlarged lymph nodes. Bladder: Unremarkable as visualized. Reproductive: The uterus is absent. Bones/joints: Unremarkable. No acute fracture. Soft tissues: Surgical changes of hernia repair are seen in the infraumbilical region. CT/CT abdomen pelvis w con* [id number] IMPRESSION: 1. Constipation. 2. Indeterminate hypodense liver lesion. CT or MRI liver protocol may allow further assessment. Radiation Dose CTDIVOL = (mGy): DLP = 2092.88 (mGy-cm)
[2019-09-03 20:01] LABS: Basophils % 0.3 %; Eosinophils # 0.1 10^3/uL (0.0-0.8); Eosinophils % 1.4 %; Hemoglobin 13.5 g/dL (11.5-15.3); Lymphocytes # 1.3 10^3/uL (0.8-4.8); Lymphocytes % 17.7 %; Mean Corpuscular HGB Conc 31.4 g/dL (30.0-36.0); Mean Corpuscular Hemoglobin 26.8 pg (28.0-34.0); Mean Corpuscular Volume 85.5 fL (81-99); Mean Platelet Volume 9.1 fL (7.4-10.4); Monocytes # 0.5 10^3/uL (0.2-0.9); Monocytes % 6.9 %; Neutrophils # 5.16 10^3/uL (1.8-7.7); Nucleated Red Blood Cells % 0 %; Platelet Count 224 10^3/cmm (130-400); Red Blood Count 5.03 10^6/uL (4.1-5.3); Red Cell Distribution Width 15.8 % (12.1-15.1); White Blood Count 7.1 10^3/uL (4.0-10.0)
[2019-09-03 20:17] LABS: Alanine Aminotransferase 25 U/L (0-33); Alkaline Phosphatase 112 IU/L (35-105); Anion Gap 16.1 (5-19); Aspartate Amino Transferase 12 U/L (0-32); Blood Urea Nitrogen 23 mg/dL (6-20); Calcium 9.8 mg/dL (8.5-10.5); Carbon Dioxide 29 mmol/L (22-29); Chloride 98 mmol/L (98-107); Globulin 3.1 g/dL (1.3-4.6); Glomerular Filtration Rate 56.9 mL/min (90-130); Glucose 304 mg/dL (65-115); Osmolality Calculated 296 mOsm/kg (285-295); Potassium 4.1 mmol/L (3.5-5.1); Sodium 139 mmol/L (136-145); Total Bilirubin 0.2 mg/dL (0.15-1.2); Total Protein 7.1 g/dL (6.6-8.7)
[2019-09-03 20:28] LABS: Bilirubin Urine Neg (NEGATIVE); Blood Urine Neg (Negative); Glucose Urine UA Norm (Normal); Ketones Urine Negative (Negative); Leukocyte Esterase Urine 2+ (Negative); Nitrate Urine Negative (Negative); Protein Urine Neg (Negative); Urine Appearance Hazy (CLEAR); Urine Color Yellow (Yellow); Urobilinogen Urine Norm (Negative); pH Urine 5 (5-7)
[2019-09-03 20:29] LABS: Hyaline Casts Urine 80-100; RBC Urine 0-4 /hpf (0-2)
[2019-09-03 20:30] LABS: Add Urine Culture? No; Bacteria Urine 1+
[2019-09-03] MEDS: iohexol 300 mg/mL 100 mL Btl IV (21:21)
[2019-09-03] MEDS: nitrofurantoin SR (BID) 100 mg Capsule PO (22:39)
[2019-09-03] MEDS: sodium chloride 0.9% 500 ML IV (22:40)
[2019-09-03 23:11] VITALS: BP 132/76; PULSE 60; RESP 16; TEMP 36.6; O2SAT 98
== END 2019-09-03 23:15 | disposition home or self-care (01) ==
PROVIDERS: Emergency Provider Physician Assistant; PCP Nurse Practitioner Family
DX: M25.561 Pain in right knee (principal); N30.01 Acute cystitis with hematuria; M54.5 Low back pain; I10 Essential (primary) hypertension; Z86.73 Personal history of transient ischemic attack (TIA), and cerebral infarction without residual deficits; E11.9 Type 2 diabetes mellitus without complications; J44.9 Chronic obstructive pulmonary disease, unspecified; Z98.61 Coronary angioplasty status; Z95.1 Presence of aortocoronary bypass graft
CPT/HCPCS: 12345; 36415; 73562; 74177; 80053; 81001; 85025; 87040; 96360; 99283; J7040; Q9967

== ENCOUNTER 2019-09-23 14:58 | Emergency (ER) | payer MEDICAID, SELFPAY ==
[2019-09-23 15:16] VITALS: BP 178/78; PULSE 97; RESP 18; TEMP 36.6; O2SAT 95; BMI 43.8
[2019-09-23 16:55] LABS: Basophils % 0.3 %; Eosinophils # 0.2 10^3/uL (0.0-0.8); Hematocrit 42.2 % (37.0-47.0); Hemoglobin 13.4 g/dL (11.5-15.3); Lymphocytes # 0.8 10^3/uL (0.8-4.8); Mean Corpuscular HGB Conc 31.8 g/dL (30.0-36.0); Mean Corpuscular Hemoglobin 27.2 pg (28.0-34.0); Mean Corpuscular Volume 85.8 fL (81-99); Mean Platelet Volume 9.3 fL (7.4-10.4); Monocytes # 0.4 10^3/uL (0.2-0.9); Monocytes % 4.8 %; Neutrophils # 7.55 10^3/uL (1.8-7.7); Neutrophils % 83.2 %; Nucleated Red Blood Cells % 0 %; Platelet Count 257 10^3/cmm (130-400); Red Blood Count 4.92 10^6/uL (4.1-5.3); Red Cell Distribution Width 15.3 % (12.1-15.1); White Blood Count 9.1 10^3/uL (4.0-10.0)
[2019-09-23 17:04] VITALS: PULSE 80; RESP 18; O2SAT 93
--- NOTE | 2019-09-23 17:05 | W.ED.NAVMDI ---
HPI - Nausea/Vomiting/Diarrhea General: Chief complaint: Nausea/Vomiting/Diarrhea Stated complaint: CANCER PT/VOMITING Time Seen by Provider: 09/23/19 17:04 History of Present Illness: HPI Narrative: Patient is a 59-year-old female comes to the ED with possible infection of surgical site and nausea. Past medical history of COPD, hypertension and diabetes. Patient also has a past medical history of breast cancer and approximately a week ago patient had a surgery to get some damaged skin removed from radiation treatment. Patient has 3 SASKIA tube drains. Patient has an at home wound care provider that comes out to see here twice a week and today the home health aide thought that there could be some infection around the surgical site starting. Patient also said that today she started developing nausea and had multiple episodes of emesis. Associated nausea: Yes Associated symtoms: Reports nausea; Denies change in vision, chest pain, dysuria, fatigue, headache(s) or palpitations Review of Systems Const: Denies: fever(s), chills or fatigue Eyes: Denies: change in vision or eye discomfort ENMT: Denies: throat pain, odynophagia, nasal discharge or nasal congestion Card: Denies: chest pain, palpitations, edema, swelling of feet/ankles, dyspnea on exertion or orthopnea Resp: Denies: dyspnea, productive cough or non-productive cough GI: Reports: nausea and vomiting; Denies: abdominal pain, diarrhea, constipation or hematochezia : Denies: flank pain, dysuria or hematuria Musc: Denies: neck pain, back pain or extremity swelling Skin/Breast: Reports: surgical incision (Concern for infection around surgical site.); Denies: rash or new lesions Neuro: Denies: headache(s), numbness in extremities or weakness in extremities PFS ED PFSH: Medical History Benign essential hypertension Bilateral carpal tunnel syndrome Cerebrovascular accident Chronic fatigue COPD (chronic obstructive pulmonary disease) Diabetes mellitus DJD (degenerative joint disease) GERD (gastroesophageal reflux disease) Hypothyroidism Infiltrating ductal carcinoma of left female breast Lymphadenopathy Migraine Morbid obesity Other spondylosis with radiculopathy, lumbar region Sarcoidosis Surgical History H/O bilateral oophorectomy H/O coronary angioplasty H/O: hysterectomy History of cholecystectomy Hx of appendectomy Post-operative state S/P CABG (coronary artery bypass graft) S/P carpal tunnel release 04/17/2019, [facility] [place], open release of the median nerve at the left wrist. 07/07/2019 Dr. Emily Miller. Open release of the median nerve at the right wrist. Family History Father Cancer Diabetes Sister Cancer Diabetes Mother Diabetes Social History Smoking and tobacco status: never smoked Alcohol intake: never Lives independently: Yes Marital status: Single Current occupational status: disabled History of recent travel: No Physical Exam Const: COMMON NORMALS: no acute distress, patient oriented x3 and alert GENERAL APPEARANCE: cooperative and comfortable NUTRITIONAL APPEARANCE: overweight HENMT: COMMON NORMALS: normocephalic HEAD & SCALP: normocephalic MOUTH: Normal oral and palatal mucosa present THROAT: posterior oropharynx normal and uvula midline Eye: COMMON NORMALS: Equal, round and reactive pupils present PUPIL: Yes Equal, round and reactive pupils present Neck/C-Spine: COMMON NORMALS: supple GENERAL: Yes normal visual inspection Resp: COMMON NORMALS: normal respiratory effort, No retractions, No use of accessory muscles and clear to auscultation bilaterally AUSCULTATION: clear to auscultation bilaterally Cardio: COMMON NORMALS: regular rate, regular rhythm, S1 normal heart sound present, S2 normal heart sound present, No gallops present (Cardio), No clicks present (Cardio), No murmurs present (Cardio) and Peripheral pulses 2+ throughout RATE: regular rate RHYTHM: regular rhythm HEART SOUNDS: S1 normal heart sound present and S2 normal heart sound present PERIPHERAL PULSES: Peripheral pulses 2+ throughout GI: COMMON NORMALS: Normal to inspection, nondistended, normoactive bowel sounds present, Soft to palpation, non-tender and no masses PALPATION: Yes Soft to palpation : COMMON NORMALS: Yes no CVA tenderness BLADDER/KIDNEY EXAM: Yes no CVA tenderness Back/Pelvis: COMMON NORMALS: no CVA tenderness Extremity: COMMON NORMALS: normal to inspection and no pedal edema Neuro: COMMON NORMALS: patient oriented x3 and moves all extremities SENSORIUM/ORIENTATION: Yes alert Skin: WOUNDS: Yes surgical site (Patient had some surrounding erythema and warmth near surgical site. No visible drainage seen.. To be some cellulitis developing around surgical site on left chest wall.) Details: no odor and surrounding erythema Course Reevaluation(s): Reevaluation #1: After patient got IV fluids and Zofran her nausea improved greatly and was able to keep p.o. fluids down while here in the ED. Patient is ready for discharge and wants to go home and rest. Vital Signs: Vital signs: Vital Signs Temperature 97.8 F 09/23/19 15:16 Pulse Rate 86 09/23/19 19:01 Respiratory Rate 18 09/23/19 19:01 Blood Pressure 130/82 09/23/19 19:01 Pulse Oximetry 93 09/23/19 19:01 MDM - Nausea/Vomiting/Diarrhea MDM Narrative: Medical decision making narrative: Patient is a 59-year-old female who comes to the ED with nausea and concerns for surgical site infection. Physical exam showed patient in no acute distress or pain. There was some surrounding erythema and warmth around surgical site on left chest wall. White blood cells 9.1 and blood glucose of 412 and a creatinine of 1.2. Last creatinine 1.0 on 09/02. Patient was given IV fluids, Zofran and 10 units of insulin while here in the ED. Her nausea symptoms greatly improved and she was able to keep p.o. fluids down. She was also given a dose of cephalexin while here in the ED. Patient was diagnosed with cellulitis of surgical site and put on a prescription for cephalexin. Patient has follow-up with wound retirement health aide on Sunday. Patient told to continue taking previously prescribed antinausea meds to help with nausea. Advance diet as tolerated. Return to ED precautions given. Patient was also told to contact surgeon about cellulitis developing. Patient understood and agreed with plan. Lab Data: Attestation: I reviewed the patient's lab results. Labs: Lab Results 09/23/19 09/23/19 09/23/19 Range/Units 16:39 16:39 18:12 WBC 9.1 (4.0-10.0) 10^3/ uL RBC 4.92 (4.1-5.3) 10^6/u L Hgb 13.4 (11.5-15.3) g/dL Hct 42.2 (37.0-47.0) % MCV 85.8 (81-99) fL MCH 27.2 L (28.0-34.0) pg MCHC 31.8 (30.0-36.0) g/dL RDW 15.3 H (12.1-15.1) % Plt Count 257 (130-400) 10^3/c mm MPV 9.3 (7.4-10.4) fL Neut % (Auto) 83.2 % Lymph % (Auto) 9.0 % [place] % (Auto) 4.8 % Eos % (Auto) 2.0 % Baso % (Auto) 0.3 % Neut # (Auto) 7.55 (1.8-7.7) 10^3/u L Lymph # (Auto) 0.8 (0.8-4.8) 10^3/u L [place] # (Auto) 0.4 (0.2-0.9) 10^3/u L Eos # (Auto) 0.2 (0.0-0.8) 10^3/u L Baso # (Auto) 0.0 (0.0-0.1) 10^3/u L Nucleated RBC % (a uto) 0 % Nucleated RBCs # 0.0 /100WBC Sodium 133 L (136-145) mmol/L Potassium 4.3 (3.5-5.1) mmol/L Chloride 92 L (98-107) mmol/L Carbon Dioxide 27 (22-29) mmol/L Anion Gap 18.3 (5-19) BUN 26 H (6-20) mg/dL Creatinine 1.2 H (0.5-0.9) mg/dL GFR Calculation 46.1 L (90-130) mL/min Glucose 412 H (65-115) mg/dL POC Glucose 389 (70-110) mg/dL Calculated Osmolal ity 290 (285-295) mOsm/k g Calcium 8.9 (8.5-10.5) mg/dL Total Bilirubin 0.3 (0.15-1.2) mg/dL AST 11 (0-32) U/L ALT 17 (0-33) U/L Alkaline Phosphata se 111 H (35-105) IU/L Total Protein 7.2 (6.6-8.7) g/dL Albumin 3.5 (3.5-5.2) g/dL Globulin 3.7 (1.3-4.6) g/dL Lipase 34 (13-60) U/L 08/18/20 Range/Units 19:06 WBC (4.0-10.0) 10^3/ uL RBC (4.1-5.3) 10^6/u L Hgb (11.5-15.3) g/dL Hct (37.0-47.0) % MCV (81-99) fL MCH (28.0-34.0) pg MCHC (30.0-36.0) g/dL RDW (12.1-15.1) % Plt Count (130-400) 10^3/c mm MPV (7.4-10.4) fL Neut % (Auto) % Lymph % (Auto) % [place] % (Auto) % Eos % (Auto) % Baso % (Auto) % Neut # (Auto) (1.8-7.7) 10^3/u L Lymph # (Auto) (0.8-4.8) 10^3/u L [place] # (Auto) (0.2-0.9) 10^3/u L Eos # (Auto) (0.0-0.8) 10^3/u L Baso # (Auto) (0.0-0.1) 10^3/u L Nucleated RBC % (a uto) % Nucleated RBCs # /100WBC Sodium (136-145) mmol/L Potassium (3.5-5.1) mmol/L Chloride (98-107) mmol/L Carbon Dioxide (22-29) mmol/L Anion Gap (5-19) BUN (6-20) mg/dL Creatinine (0.5-0.9) mg/dL GFR Calculation (90-130) mL/min Glucose (65-115) mg/dL POC Glucose 327 (70-110) mg/dL Calculated Osmolal ity (285-295) mOsm/k g Calcium (8.5-10.5) mg/dL Total Bilirubin (0.15-1.2) mg/dL AST (0-32) U/L ALT (0-33) U/L Alkaline Phosphata se (35-105) IU/L Total Protein (6.6-8.7) g/dL Albumin (3.5-5.2) g/dL Globulin (1.3-4.6) g/dL Lipase (13-60) U/L Discharge Plan Discharge Patient Disposition: Home Clinical Impression: Cellulitis of drainage site following surgery Condition: Stable Prescriptions: New cephalexin 500 mg capsule 500 mg PO BID 10 Days Qty: 20 RF: 0 No Action glipizide 10 mg tablet 10 mg PO BID RF: 0 valacyclovir 1 gram tablet 2,000 mg PO Q12H RF: 0 torsemide 5 mg tablet 10 mg PO DAILY PRN (Reason: Edema) RF: 0 albuterol sulfate 0.63 mg/3 mL solution for nebulization 0.63 mg INHALATION Q6H PRN (Reason: Shortness Of Breath Or Wheezing) RF: 0 furosemide [Lasix] 40 mg tablet 40 mg PO DAILY PRN (Reason: Edema) RF: 0 (DME) Diabetic Shoes See Rx Instructions .ROUTE .MEDSUPPLY Qty: 1 RF: 0 hydromorphone [Dilaudid] 2 mg Tablet 2 mg PO TID PRN (Reason: Pain, Mild) RF: 0 metformin 1,000 mg Tablet Extended Release 24hr 1,000 mg PO DAILY RF: 0 diclofenac sodium 50 mg Tablet,Delayed Release (Dr/Ec) 50 mg PO TID RF: 0 pregabalin [Lyrica] 200 mg capsule 200 mg PO TID RF: 0 budesonide 0.5 mg/2 mL Suspension For Nebulization 0.5 mg INHALATION DAILY RF: 0 diazepam 5 mg tablet 5 mg PO DAILY RF: 0 Refresh Plus 0.5 % Dropperette 1 drp OPHTHALMIC (EYE) BID RF: 0 alpha lipoic acid 200 mg Tablet 200 mg PO DAILY RF: 0 biotin 10,000 mcg Tablet,Disintegrating 10,000 mcg PO DAILY RF: 0 Zanaflex 4 mg Capsule 4 mg PO TID PRN (Reason: muscle spasms) RF: 0 Discharge Orders: Discharge Order (Routine); Ordered 09/23/19 Ordered By: Rodrigo Fairchild Referrals: Luis Eduardo Huerta NP [Primary Care Provider] - Discharge Diet: Advance as tolerated and Clear Liquid Discharge Activity: Increase activity as tolerated Patient Instructions: Surgical Site Infections (ED) Activity Restrictions/Additional Instructions: Follow-up with medical provider as directed at your scheduled wound retirement health appointment on Sunday. Contact surgeon to discuss surgical site cellulitis. Take antibiotic as prescribed. Return if you are having any kind of reaction to the antibiotic you can take Benadryl and return to ED for evaluation. Return to the ER or your medical provider if condition worsens. Please read and understand discharge instructions. If any questions, please ask. Discharge Date/Time: 09/23/19 19:30 Coding Level of Care Code ED Diabetic Educator for Hector Fwemily Exam Comprehensive
[2019-09-23 17:18] LABS: Alanine Aminotransferase 17 U/L (0-33); Albumin Level 3.5 g/dL (3.5-5.2); Alkaline Phosphatase 111 IU/L (35-105); Anion Gap 18.3 (5-19); Aspartate Amino Transferase 11 U/L (0-32); Blood Urea Nitrogen 26 mg/dL (6-20); Calcium 8.9 mg/dL (8.5-10.5); Carbon Dioxide 27 mmol/L (22-29); Chloride 92 mmol/L (98-107); Globulin 3.7 g/dL (1.3-4.6); Glomerular Filtration Rate 46.1 mL/min (90-130); Glucose 412 mg/dL (65-115); Lipase 34 U/L (13-60); Osmolality Calculated 290 mOsm/kg (285-295); Potassium 4.3 mmol/L (3.5-5.1); Sodium 133 mmol/L (136-145); Total Bilirubin 0.3 mg/dL (0.15-1.2); Total Protein 7.2 g/dL (6.6-8.7)
[2019-09-23 18:02] VITALS: PULSE 78; RESP 18; O2SAT 92
[2019-09-23] MEDS: diphenhydrAMINE 50 mg/mL SDV 1mL 25 MG IVP (18:04)
[2019-09-23] MEDS: ondansetron 2 mg/ML SDV 2 mL 4 MG IVP (18:06)
[2019-09-23] MEDS: sodium chloride 0.9% 1,000 ML 999 ML IV (18:06)
[2019-09-23] MEDS: cephALEXin 500 mg Capsule PO (18:08)
[2019-09-23] MEDS: insulin regular-human 100 units/1 mL 10 UNIT IVP (18:16)
[2019-09-23 18:21] LABS: Glucose Point of Care 389 mg/dL (70-110)
[2019-09-23 19:01] VITALS: BP 130/82; PULSE 86; RESP 18; O2SAT 93
[2019-09-23 19:09] LABS: Glucose Point of Care 327 mg/dL (70-110)
== END 2019-09-23 19:30 | disposition home or self-care (01) ==
PROVIDERS: Family Medicine; Emergency Provider Physician Assistant; PCP Nurse Practitioner Family
DX: T81.49XA Infection following a procedure, other surgical site, initial encounter (principal); Z79.84 Long term (current) use of oral hypoglycemic drugs; I10 Essential (primary) hypertension; J44.9 Chronic obstructive pulmonary disease, unspecified; E11.9 Type 2 diabetes mellitus without complications; Z85.3 Personal history of malignant neoplasm of breast; Z95.1 Presence of aortocoronary bypass graft; Z98.61 Coronary angioplasty status
CPT/HCPCS: 12345; 36415; 36416; 80053; 82962; 83690; 85025; 96361; 96374; 96375; 99282; 99283; J1200; J1815; J2405; J7030

== ENCOUNTER 2019-11-09 13:38 | Emergency (ER) | payer MEDICAID, SELFPAY ==
[2019-11-09 14:16] VITALS: BP 121/79; PULSE 88; RESP 14; TEMP 36.8; O2SAT 97; BMI 32.5
--- NOTE | 2019-11-09 14:39 | CTR_ITS ---
PROCEDURE INFORMATION: Exam: CT Cervical Spine Without Contrast Exam date and time: 11/09/2019 3:22 PM Age: 59 years old Clinical indication: Injury or trauma; Fall; Blunt trauma TECHNIQUE: Imaging protocol: Computed tomography images of the cervical spine without contrast. Axial, coronal and sagittal reformatted images were created and reviewed. Radiation optimization: All CT scans at this facility use at least one of these dose optimization techniques: automated exposure control; mA and/or kV adjustment per patient size (includes targeted exams where dose is matched to clinical indication); or iterative reconstruction. COMPARISON: No relevant prior studies available. RADIATION DOSE METRICS: Total DLP (mGy-cm): 1150.89 FINDINGS: Vertebrae: Mild reversal of the normal cervical lordosis. Minimal anterolisthesis of C3 on C4 and C4 on C5. Alignment otherwise anatomic. Minimal dextroscoliosis. No CT evidence of acute fracture, dislocation or subluxation. Vertebral body heights maintained. Discs/Spinal canal/Neural foramina: Mild multilevel spondylosis. No significant spinal canal or neural foraminal stenosis. Soft tissues: Grossly unremarkable. Lungs: Grossly unremarkable. CT/CT cervical spin wo con* [id number] [address]: 1. No CT evidence of acute cervical spine traumatic injury. 2. Additional findings, as above. Radiation Dose CTDIVOL = (mGy): DLP = 1150.89 (mGy-cm)
--- NOTE | 2019-11-09 14:39 | CTR_ITS ---
PROCEDURE INFORMATION: Exam: CT Maxillofacial Without Contrast Exam date and time: 11/09/2019 3:22 PM Age: 59 years old Clinical indication: Injury or trauma; Fall; Blunt trauma (contusions or hematomas); Cheek bone and ocular (eye or eyeball); Left TECHNIQUE: Imaging protocol: Computed tomography images of the face without contrast. Axial, coronal and sagittal reformatted images were created and reviewed. Radiation optimization: All CT scans at this facility use at least one of these dose optimization techniques: automated exposure control; mA and/or kV adjustment per patient size (includes targeted exams where dose is matched to clinical indication); or iterative reconstruction. COMPARISON: No relevant prior studies available. RADIATION DOSE METRICS: Total DLP (mGy-cm): 712.15 FINDINGS: Orbits: No acute intraorbital abnormality. Globes intact. Bones/joints: No acute fracture. Paranasal sinuses: Evidence of prior FESS. Left greater than right maxillary sinus polyps versus mucous retention cyst. Left nasal cavity polyps. Mild ethmoid mucosal thickening. Soft tissues: Unremarkable. CT/CT facial bones wo con* [id number] IMPRESSION: 1. No acute facial bone fracture. 2. Additional findings, as above. Radiation Dose CTDIVOL = (mGy): DLP = 712.15 (mGy-cm)
--- NOTE | 2019-11-09 14:39 | CTR_ITS ---
PROCEDURE INFORMATION: Exam: CT Head Without Contrast Exam date and time: 11/09/2019 3:22 PM Age: 59 years old Clinical indication: Injury or trauma; Fall; Blunt trauma (contusions or hematomas) TECHNIQUE: Imaging protocol: Computed tomography of the head without contrast. Axial, coronal and sagittal reformatted images were created and reviewed. Radiation optimization: All CT scans at this facility use at least one of these dose optimization techniques: automated exposure control; mA and/or kV adjustment per patient size (includes targeted exams where dose is matched to clinical indication); or iterative reconstruction. COMPARISON: No relevant prior studies available. RADIATION DOSE METRICS: Total DLP (mGy-cm): 899.24 FINDINGS: Brain: Partially empty sella. Subtle, patchy areas of hypoattenuation in the periventricular and subcortical white matter, nonspecific but suggestive of mild chronic small vessel ischemic disease. No CT evidence of acute intracranial hemorrhage or acute territorial infarction. No significant mass effect or midline shift. Basal cisterns patent. Cerebral ventricles: Prominence of the cortical sulci, cisterns and ventricular system, consistent with cerebral and cerebellar volume loss. Bones/joints: No acute osseous abnormality. Paranasal sinuses: Evidence of prior FESS. Mild ethmoid mucosal thickening. Left greater than right maxillary sinus polyps versus mucous retention cysts. Mastoid air cells: Grossly unremarkable. Soft tissues: Grossly unremarkable. CT/CT head wo con* [id number] IMPRESSION: 1. No CT evidence of acute intracranial pathology. 2. Additional findings, as above. Radiation Dose CTDIVOL = (mGy): DLP = 899.24 (mGy-cm)
[2019-11-09 15:03] VITALS: BP 135/87; PULSE 103; RESP 18; O2SAT 93
--- NOTE | 2019-11-09 15:25 | ED_ITS ---
HPI - Fall General: Chief Complaint: Fall Stated Complaint: blurred vision/fall/dizziness Time Seen by Provider: 11/09/19 15:00 History of Present Illness: HPI Narrative: 59-year-old female presents following a fall. Patient reports that the fall happened 2 days ago. That she is complaining of some left-sided facial pain. She is complaining of some nausea vomiting. Reports that she feels like she has some mild blurred vision. She complains of the pain just under her left eye. There is no complaints of pain with eye movement. Patient does have a wheelchair but does not describe to me much how she fell out of it. She has some mild tenderness in her right hip but no other complaints. Associated symptoms-after fall: Reports headache(s); Denies abdominal pain, chest pain or neck pain Review of Systems Const: Denies: fever(s) or chills Eyes: Reports: other (Please see HPI) ENMT: Denies: throat pain or mouth pain Card: Denies: chest pain or palpitations Resp: Denies: dyspnea, productive cough or non-productive cough GI: Reports: nausea and vomiting; Denies: abdominal pain : Denies: flank pain or dysuria Musc: Reports: other (Right hip pain); Denies: neck pain Skin/Breast: Denies: rash or pruritus Neuro: Reports: headache(s) PFSH ED PFSH: Medical History Benign essential hypertension Bilateral carpal tunnel syndrome Cerebrovascular accident Chronic fatigue COPD (chronic obstructive pulmonary disease) Diabetes mellitus DJD (degenerative joint disease) GERD (gastroesophageal reflux disease) Hypothyroidism Infiltrating ductal carcinoma of left female breast Lymphadenopathy Migraine Morbid obesity Other spondylosis with radiculopathy, lumbar region Sarcoidosis Surgical History H/O bilateral oophorectomy H/O coronary angioplasty H/O: hysterectomy History of cholecystectomy Hx of appendectomy Post-operative state S/P CABG (coronary artery bypass graft) S/P [place] [facility] [place] release of the median nerve at the left wrist. 07/07/2019 Dr. Emily Miller. Open release of the median nerve at the right wrist. Family History Father Cancer Diabetes Sister Cancer Diabetes Mother Diabetes Social History Smoking and tobacco status: never smoked Alcohol intake: never Lives independently: Yes Marital status: Single Current occupational status: disabled History of recent travel: No Physical Exam Const: COMMON NORMALS: no acute distress, patient oriented x3 and alert GENERAL APPEARANCE: cooperative ORIENTATION/CONSCIOUSNESS: Yes awake HENMT: FACE & SINUS: normal facial exam; no crepitus and no ecchymosis Eye: COMMON NORMALS: Equal, round and reactive pupils present and EOMs intact bilaterally PUPIL: Yes Equal, round and reactive pupils present Neck/C-Spine: COMMON NORMALS: full ROM Resp: COMMON NORMALS: normal respiratory effort, No retractions and No use of accessory muscles Cardio: COMMON NORMALS: regular rate and regular rhythm RATE: regular rate RHYTHM: regular rhythm GI: COMMON NORMALS: Soft to palpation and non-tender PALPATION: Yes Soft to palpation : COMMON NORMALS: Yes no CVA tenderness BLADDER/KIDNEY EXAM: Yes no CVA tenderness Back/Pelvis: COMMON NORMALS: no CVA tenderness Extremity: NARRATIVE EXTREMITY EXAM: Patient has very minimal tenderness to right hip, otherwise no acute findings Neuro: COMMON NORMALS: patient oriented x3, CN's II-XII intact bilaterally and no focal motor deficits SENSORIUM/ORIENTATION: Yes alert Psych: COMMON NORMALS: mental status grossly normal and Normal thought process present THOUGHT PROCESS: Normal thought process present Course Vital Signs: Vital signs: Vital Signs Temperature 98.3 F 11/09/19 14:16 Pulse Rate 84 11/09/19 16:47 Respiratory Rate 18 11/09/19 16:47 Blood Pressure 122/76 11/09/19 16:47 Pulse Oximetry 97 11/09/19 16:47 MDM - Fall MDM Narrative: Medical decision making narrative: Patient CT head neck and cervical spine are all negative. Discussed with patient that her symptoms are likely as a result of a mild concussion and headache associated with that. Patient was offered some Toradol but declined due to her chemo. She reports she has some medication at home that she will take for her headache. Discussed with her need for a lot of rest, if she is not improving in 4 to 5 days she is to follow-up with her primary care provider for recheck of her symptoms. Patient is stable and will be discharged home Discharge Plan Discharge Patient Disposition: Home Clinical Impression: Concussion without loss of consciousness Qualifiers: Encounter type: initial encounter Qualified Code(s): S06.0X0A - Concussion without loss of consciousness, initial encounter Condition: Stable Prescriptions: No Action glipizide 10 mg tablet 10 mg PO BID RF: 0 valacyclovir 1 gram tablet 2,000 mg PO Q12H RF: 0 torsemide 5 mg tablet 10 mg PO DAILY PRN (Reason: Edema) RF: 0 albuterol sulfate 0.63 mg/3 mL solution for nebulization 0.63 mg INHALATION Q6H PRN (Reason: Shortness Of Breath Or Wheezing) RF: 0 furosemide [Lasix] 40 mg tablet 40 mg PO DAILY PRN (Reason: Edema) RF: 0 (DME) Diabetic Shoes See Rx Instructions .ROUTE .MEDSUPPLY Qty: 1 RF: 0 hydromorphone [Dilaudid] 2 mg Tablet 2 mg PO TID PRN (Reason: Pain, Mild) RF: 0 metformin 1,000 mg Tablet Extended Release 24hr 1,000 mg PO DAILY RF: 0 diclofenac sodium 50 mg Tablet,Delayed Release (Dr/Ec) 50 mg PO TID RF: 0 pregabalin [Lyrica] 200 mg capsule 200 mg PO TID RF: 0 budesonide 0.5 mg/2 mL Suspension For Nebulization 0.5 mg INHALATION DAILY RF: 0 diazepam 5 mg tablet 5 mg PO DAILY RF: 0 Refresh Plus 0.5 % Dropperette 1 drp OPHTHALMIC (EYE) BID RF: 0 alpha lipoic acid 200 mg Tablet 200 mg PO DAILY RF: 0 biotin 10,000 mcg Tablet,Disintegrating 10,000 mcg PO DAILY RF: 0 Discharge Orders: Discharge Order (Routine); Ordered 11/09/19 Ordered By: Danilo Moreland Referrals: Luis Eduardo Huerta NP [Primary Care Provider] - Discharge Diet: Regular Discharge Activity: Increase activity as tolerated Patient Instructions: Concussion/Head Injury - Adult Activity Restrictions/Additional Instructions: Follow-up with your primary care provider in 4 to 5 days if your symptoms are not improving Discharge Date/Time: 11/09/19 17:04 Coding Level of Care Code ED Finishing Machine Operator Automatic for Zevg Fwd Exam Comprehensive
[2019-11-09] MEDS: ondansetron 4 MG Tablet PO (16:31)
[2019-11-09 16:47] VITALS: BP 122/76; PULSE 84; RESP 18; O2SAT 97
== END 2019-11-09 17:04 | disposition home or self-care (01) ==
PROVIDERS: Emergency Provider Student in an Organized Health Care Education/Training Program; PCP Nurse Practitioner Family
DX: S06.0X0A Concussion without loss of consciousness, initial encounter (principal); W19.XXXA Unspecified fall, initial encounter; I10 Essential (primary) hypertension; J44.9 Chronic obstructive pulmonary disease, unspecified; E11.9 Type 2 diabetes mellitus without complications; Z95.1 Presence of aortocoronary bypass graft; Z98.61 Coronary angioplasty status
CPT/HCPCS: 12345; 70450; 70486; 72125; 99281; 99283; Q0162

== ENCOUNTER 2020-03-10 11:24 | Inpatient (IN) | payer MEDICAID, SELFPAY ==
[2020-03-10] VITALS (17 sets, daily range): BP systolic 105–151; BP diastolic 64–100; PULSE 71–91; RESP 16–22; TEMP 36.2–37.2; O2SAT 90–100; BMI 43.8
--- NOTE | 2020-03-10 11:40 | USCV_ITS ---
Liliam Reynaga Age: 59 Gender: F : 1960 Exam Date: 03/10/2020 11:59 Ordering Phys: Rocco Russell MD Technologist: Chalo Tamez Exam Location: [facility] [place]_ Indication: DVT HISTORY: Upper extremity swelling. PROCEDURES: Venous duplex imaging was performed in only the left upper extremity. The following venous structures were evaluated: internal jugular vein, subclavian vein, axillary vein, and brachial veins. In addition, the basilic vein, cephalic vein, radial vein, and ulnar vein. Serial compression, augmentation maneuvers, and spectral Doppler flow evaluation were performed. FINDINGS: Normal 2-D, color Doppler and phasicity noted in the left upper extremity venous system extending from the left internal jugular vein through the main forearm. No thrombosis or occlusion noted. CONCLUSIONS No left upper extremity DVT. Dr. Mellissa Negron DO (Electronically Signed) Final Date: 10 March 2020 13:57 S
--- NOTE | 2020-03-10 11:42 | CT_ITS ---
WS: [id number] CT CHEST WITH INTRAVENOUS CONTRAST HISTORY: left chest wall abscess with cellulitis to left shoulder. TECHNIQUE: Contiguous 5 mm axial imaging performed on the thorax. Coronal and sagittal reformats are submitted. All CT scans at [facility] use at least one of these dose optimization techniq ues: automated exposure control; mA and/or kV adjustment per patient size (includes targeted exams wh ere dose is matched to clinical indication); or iterative reconstruction. CONTRAST: Omnipaque 300; 95 mL IV. DLP: 875.86 mGy.cm COMPARISON: 09/29/2005. Lungs and central airway: Lungs are clear. No mass or nodule or pneumonia. Normal vasculature. Pleura: Normal. No pleural effusion. Heart and pericardium: Normal size heart with no pericardial effusion. Mediastinum and eliseo: No mediastinum or hilar adenopathy. Vessels: Mild atherosclerosis aorta. Normal size pulmonary artery. Chest wall and lower neck: There is a large fluid collection over the anterior upper chest wall with the port was a varus. Disc fluid collection measures 14 x 8 cm. There is mild enhancement within the wall is small amount of adjacent soft tissue thickening. There is no air in this collection. There is no identified catheter extending into the subclavian vein. Upper abdomen: Hepatic steatosis. Osseous structures: Mild thoracic spondylitic disease. Sclerotic disease within several of the thorac ic vertebral bodies. Probably T10 and T6. CT/CT chest w con* [id number] IMPRESSION: 1. Large simple appearing fluid collection surrounding the port reservoir over the LEFT upper thorax. This may be an infected collection but there is no air within the collection. Collection measures 14 x 8 cm. Small amount of adjacent inflammatory changes in the soft tissues over the thorax. 2. No catheter is identified associated with the Port-A-Cath. 3. Sclerotic changes in T6 and T10 suspect metastatic disease. 4. Hepatic steatosis.
[2020-03-10 12:04] LABS: Basophils % 0.4 %; Eosinophils % 0.2 %; Hematocrit 42.7 % (37.0-47.0); Hemoglobin 13.4 g/dL (11.5-15.3); Lymphocytes # 1.1 10^3/uL (0.8-4.8); Lymphocytes % 12.8 %; Mean Corpuscular HGB Conc 31.4 g/dL (30.0-36.0); Mean Corpuscular Hemoglobin 25.4 pg (28.0-34.0); Mean Platelet Volume 9.6 fL (7.4-10.4); Monocytes # 0.5 10^3/uL (0.2-0.9); Monocytes % 6.1 %; Neutrophils # 6.77 10^3/uL (1.8-7.7); Neutrophils % 79.8 %; Nucleated Red Blood Cells % 0 %; Platelet Count 190 10^3/cmm (130-400); Red Blood Count 5.27 10^6/uL (4.1-5.3); White Blood Count 8.5 10^3/uL (4.0-10.0)
[2020-03-10] MEDS: iohexol 300 mg/mL 100 mL Btl IV (12:17)
[2020-03-10] MEDS: sodium chloride 0.9% 1,000 ML 999 ML IV (12:34)
[2020-03-10] MEDS: acetaminophen 325 mg Tablet 1000 MG PO (12:35)
[2020-03-10 12:37] LABS: Lactate (Lactic Acid level) 1.3 mmol/L (0.5-2.2)
[2020-03-10] MEDS: piperacillin-tazobactam 3.375 GM in sodium chloride 0.9% (plus) 50 ML IV ×2 (12:39→18:51)
[2020-03-10] MEDS: ondansetron 2 mg/ML SDV 2 mL 4 MG IVP (12:54)
[2020-03-10] MEDS: HYDROmorphone 1 mg/mL INJ 1 mL 0.5 MG IVP (12:56)
--- NOTE | 2020-03-10 13:28 | PC.PHAR ---
pt brought in medication bottles and [facility] [place] sent med list-pt states she only takes lasix and torsemide prn-pt states she last took her meds on sunday except clindamycin she took today-pt states she has percocet but hasnt taken it-pt states she takes dilaudid-pt states she takes biotin everyday pts med list from [employer] has one tab every other day
--- NOTE | 2020-03-10 13:31 | ANES.PREANE2 ---
Pre-Anesthetic Assessment Pre-Anesthetic Assessment: Height/Weight: Height 1.7 m Weight 127.006 kg Temp Pulse Resp BP Pulse Ox 97.9 F 86 16 105/64 93 03/10/20 11:27 03/10/20 13:02 03/10/20 13:02 03/10/20 13:02 03/10/20 13:02 Preop Diagnosis: Infected Port-A-Cath Proposed Procedure: Operation Date: 03/10/20 13:30 Proposed Procedures p Portacath Removal(Not Applicable) - Lazaro Benitez MD Familial anesthetic complications: Woke up during previous surgeries Was Beta Favian taken within 24 hours: N/A Last intake: No solids since sunday, ice chips stopped shortly before 1300 Social: Social History: No alcohol and No tobacco Exam: Pre-Anes Outpt Exam: alert, oriented x 3, clear to auscultation bilaterally and regular rate & rhythm Airway: Cervical ROM: WNL MP: 4 Dentition: Other (missing teeth) Pulmonary: Pulmonary: Asthma and Sleep apnea Metabolic: Metabolic: DM and Morbid obesity Neuropsych: Neuropsych: CVA (X3 (couple of years ago) - poor memory since then) Anesthetic Plan: ASA status: 3 Anesthesia: MAC Risk of > 500 ml blood loss (7ml/kg in children): No Meds/Allergies Current Medications: Current Medications Generic Name Dose Route Start Last Admin Trade Name Freq PRN Reason Stop Dose Admin Vancomycin HCl 2,0 00 mg/ 500 mls @ 250 mls /hr 03/10/20 12:00 03/10/20 12:59 Sodium Chloride IV 03/10/20 13:59 250 mls/hr ONCE ONE Administration PFSH Anesthesia PFSH: Medical History (Updated 03/10/20 @ 13:15 by Lazaro Benitez MD) Benign essential hypertension Bilateral carpal tunnel syndrome Cerebrovascular accident Chronic fatigue COPD (chronic obstructive pulmonary disease) Diabetes mellitus DJD (degenerative joint disease) GERD (gastroesophageal reflux disease) Hypothyroidism Infiltrating ductal carcinoma of left female breast Lymphadenopathy Migraine Other spondylosis with radiculopathy, lumbar region Sarcoidosis Surgical History (Updated 03/10/20 @ 13:15 by Lazaro Benitez MD) H/O bilateral oophorectomy H/O coronary angioplasty H/O: hysterectomy History of cholecystectomy Hx of appendectomy S/P CABG (coronary artery bypass graft) S/P carpal tunnel release 04/17/2019, [facility], open release of the median nerve at the left wrist. 07/07/2019 Dr. Emily Miller. Open release of the median nerve at the right wrist. Family History Father Cancer Diabetes Sister Cancer Diabetes Mother Diabetes Social History Smoking and tobacco status: never smoked Alcohol intake: never Lives independently: Yes Marital status: Single Current occupational status: disabled History of recent travel: No Data Anesthesia CBC & Chem 7: 03/10/20 11:50 03/10/20 13:01 Other Labs: Laboratory Results - last 48 hr 03/10/20 03/10/20 03/10/20 11:50 11:50 11:50 WBC 8.5 RBC 5.27 Hgb 13.4 Hct 42.7 MCV 81.0 MCH 25.4 L MCHC 31.4 RDW 16.0 H Plt Count 190 MPV 9.6 Neut % (Auto) 79.8 Lymph % (Auto) 12.8 [place] % (Auto) 6.1 Eos % (Auto) 0.2 Baso % (Auto) 0.4 Neut # (Auto) 6.77 Lymph # (Auto) 1.1 [place] # (Auto) 0.5 Eos # (Auto) 0.0 Baso # (Auto) 0.0 Nucleated RBC % (auto) 0 Nucleated RBCs # 0.0 Sodium Cancelled Potassium Cancelled Chloride Cancelled Carbon Dioxide Cancelled Anion Gap Cancelled BUN Cancelled Creatinine Cancelled GFR Calculation Cancelled Glucose Cancelled Calculated Osmolality Cancelled Lactate 1.3 Calcium Cancelled Total Bilirubin Cancelled AST Cancelled ALT Cancelled Alkaline Phosphatase Cancelled NT-Pro-B Natriuret Pep Cancelled Total Protein Cancelled Albumin Cancelled Globulin Cancelled Micro: Microbiology 03/10/20 11:50 Blood Culture - Preliminary Blood SPECIMEN COLLECTED 03/10/20 11:50 Blood Culture - Preliminary Blood SPECIMEN COLLECTED Cardiac Studies: No Data to Display
--- NOTE | 2020-03-10 13:40 | ED_ITS ---
HPI - Extremity Problem General: Chief complaint: Extremity Problem,Nontraumatic Stated complaint: L ARM SWELLING, INFEC PORT SITE Time Seen by Provider: 03/10/20 11:30 History of Present Illness: HPI Narrative: The patient is a 59-year-old female with history of strokes and breast cancer with recent procedure to her left breast port approximately 1 to 2 weeks ago. She comes in today because of pain swelling tenderness and erythema to her left breast where her port is and this redness has gone all the way down to her left hand and is swollen as well. There is a small amount of discharge coming from the surgical wound. Complaint: extremity pain Onset (ago): day(s) (3) Location: left Severity scale (1-10): 8 Quality: sharp Associated symptoms: Reports rash; Deny chest pain Review of Systems General: Reports: 10 or more systems reviewed and unremarkable except in HPI and below Const: Denies: fatigue Eyes: Denies: change in vision, blurry vision or eye redness ENMT: Denies: throat pain, swelling of lips/tongue, ear or mastoid pain or nasal congestion Card: Denies: chest pain, palpitations, irregular heart rhythm, edema, dyspnea on exertion or orthopnea Resp: Denies: dyspnea, productive cough or non-productive cough GI: Denies: abdominal pain, diarrhea or GI cramping : Denies: flank pain, difficulty voiding, urinary frequency or urinary urgency Musc: Denies: neck pain, back pain, extremity pain, joint pain, joint redness, limited range of motion or muscle weakness Skin/Breast: Reports: rash, erythema, changes in skin color and other (drainage to surgical wound); Denies: pruritus, skin pain or skin tenderness Neuro: Denies: headache(s), numbness in extremities, weakness in extremities, sensory changes, difficulty walking, dizziness, confusion or Slurred speech present Psych: Denies: anxiety or depression Endo: Denies: polyuria All/Imm: Denies: urticaria, throat swelling or tongue swelling [facility] PFSH: Medical History (Updated 03/10/20 @ 13:49 by Rocco Russell MD) Benign essential hypertension Bilateral carpal tunnel syndrome Cerebrovascular accident Chronic fatigue COPD (chronic obstructive pulmonary disease) Diabetes mellitus DJD (degenerative joint disease) GERD (gastroesophageal reflux disease) Hypothyroidism Infiltrating ductal carcinoma of left female breast Lymphadenopathy Migraine Other spondylosis with radiculopathy, lumbar region Sarcoidosis Surgical History (Updated 03/10/20 @ 13:15 by Lazaro Benitez MD) H/O bilateral oophorectomy H/O coronary angioplasty H/O: hysterectomy History of cholecystectomy Hx of appendectomy S/P CABG (coronary artery bypass graft) S/P carpal tunnel release 04/17/2019, [facility], open release of the median nerve at the left wrist. 07/07/2019 Dr. Emily Miller. Open release of the median nerve at the right wrist. Family History Father Cancer Diabetes Sister Cancer Diabetes Mother Diabetes Social History Smoking and tobacco status: never smoked Alcohol intake: never Lives independently: Yes Marital status: Single Current occupational status: disabled History of recent travel: No Physical Exam Const: COMMON NORMALS: no acute distress, average body habitus, patient oriented x3, no limitations, healthy appearing, alert and well nourished GENERAL APPEARANCE: cooperative, comfortable, well kempt and well developed ORIENTATION/CONSCIOUSNESS: Yes awake, Yes oriented to person, Yes oriented to place and Yes oriented to time HENMT: COMMON NORMALS: normocephalic, external ears normal and Normal external nose present HEAD & SCALP: normal to inspection and normocephalic NOSE: Normal external nose present EXTERNAL EAR: Yes external ears normal MOUTH: Normal oral and palatal mucosa present THROAT: posterior oropharynx normal Eye: COMMON NORMALS: Equal, round and reactive pupils present and EOMs intact bilaterally GENERAL EYE: appearance normal, both eyes and all related structures PUPIL: Yes Equal, round and reactive pupils present Neck/C-Spine: COMMON NORMALS: full ROM, no lymphadenopathy, no meningeal signs and no JVD GENERAL: Yes normal visual inspection Lymph: LYMPHATIC: no lymphadenopathy noted Chest: COMMONS NORMALS: normal inspection of the chest and normal palpation of entire chest wall Resp: COMMON NORMALS: normal respiratory effort, No retractions, No use of accessory muscles, clear to auscultation bilaterally and percussion normal EFFORT & INSPECTION: Yes able to speak in complete sentences AUSCULTATION: clear to auscultation bilaterally PERCUSSION: percussion normal Cardio: COMMON NORMALS: no JVD, regular rate, regular rhythm, S1 normal heart sound present, S2 normal heart sound present and Peripheral pulses 2+ throughout RATE: regular rate RHYTHM: regular rhythm HEART SOUNDS: S1 normal heart sound present and S2 normal heart sound present PERIPHERAL PULSES: Peripheral pulses 2+ throughout GI: COMMON NORMALS: Normal to inspection, nondistended, normoactive bowel sounds present, Soft to palpation, non-tender and no masses INSPECTION: Yes normal to inspection PALPATION: Yes Soft to palpation : COMMON NORMALS: Yes no CVA tenderness BLADDER/KIDNEY EXAM: Yes no CVA tenderness Back/Pelvis: COMMON NORMALS: no CVA tenderness, thoracic and lumbar spine normal to inspection, no thoracic nor lumbar tenderness and thoraco-lumbar ROM normal Extremity: COMMON NORMALS: normal to inspection, full ROM, capillary refill normal, no joint enlargement and no pedal edema GENERAL: Yes normal exam except as noted Neuro: COMMON NORMALS: patient oriented x3, CN's II-XII intact bilaterally, moves all extremities, no focal motor deficits, no sensory deficits noted and gait normal SENSORIUM/ORIENTATION: Yes alert, Yes oriented to person, Yes oriented to place and Yes oriented to time MENINGEAL SIGNS: Yes no meningeal signs Psych: COMMON NORMALS: mental status grossly normal, Normal thought process present, cooperative, normal affect and speech normal APPEARANCE: Yes well k empt ATTITUDE: Yes calm SPEECH: Yes normal speech THOUGHT PROCESS: Norm al thought process present Skin: COMMON NORMALS: no rashes or lesions noted NARRATIVE SKIN EXAM: The patient has a recent surgical wound to her left breast and augmented breast history. There is some drainage coming from the wound. There is significant surrounding cellulitis with firm and tender erythematous skin. Cheilitis extends to the left shoulder and forearm down to nearly her hand and is also tender. Entire left arm more swollen than the right. GENERAL SKIN EXAM: no rashes or lesions noted Course Vital Signs: Vital signs: Vital Signs Temperature 97.9 F 03/10/20 11:27 Pulse Rate 87 03/10/20 13:35 Respiratory Rate 16 03/10/20 13:02 Blood Pressure 105/64 03/10/20 13:35 Pulse Oximetry 97 03/10/20 13:35 MDM - Extremity (Nontraumatic) MDM Narrative: Medical decision making narrative: The patient has a likely abscess to where her port is with surrounding cellulitis extending to her left arm. Discussed with Dr. Benitez who will take her to surgery. Dr. Sanchez accepts to [facility] Lab Data: Labs: Lab Results 03/10/20 03/10/20 03/10/20 Range/Units 11:50 11:50 11:50 WBC 8.5 (4.0-10.0) 10^3/ uL RBC 5.27 (4.1-5.3) 10^6/u L Hgb 13.4 (11.5-15.3) g/dL Hct 42.7 (37.0-47.0) % MCV 81.0 (81-99) fL MCH 25.4 L (28.0-34.0) pg MCHC 31.4 (30.0-36.0) g/dL RDW 16.0 H (12.1-15.1) % Plt Count 190 (130-400) 10^3/c mm MPV 9.6 (7.4-10.4) fL Neut % (Auto) 79.8 % Lymph % (Auto) 12.8 % [place] % (Auto) 6.1 % Eos % (Auto) 0.2 % Baso % (Auto) 0.4 % Neut # (Auto) 6.77 (1.8-7.7) 10^3/u L Lymph # (Auto) 1.1 (0.8-4.8) 10^3/u L [place] # (Auto) 0.5 (0.2-0.9) 10^3/u L Eos # (Auto) 0.0 (0.0-0.8) 10^3/u L Baso # (Auto) 0.0 (0.0-0.1) 10^3/u L Nucleated RBC % (a uto) 0 % Nucleated RBCs # 0.0 /100WBC Sodium Cancelled Potassium Cancelled Chloride Cancelled Carbon Dioxide Cancelled Anion Gap Cancelled BUN Cancelled Creatinine Cancelled GFR Calculation Cancelled Glucose Cancelled Calculated Osmolal ity Cancelled Lactate 1.3 (0.5-2.2) mmol/L Calcium Cancelled Total Bilirubin Cancelled AST Cancelled ALT Cancelled Alkaline Phosphata se Cancelled NT-Pro-B Natriuret Pep Cancelled Total Protein Cancelled Albumin Cancelled Globulin Cancelled Discharge Plan Discharge Patient Disposition: Admitted As Inpatient Clinical Impression: Abscess of breast Condition: Stable Coding Level of Care Code ED Correction Warden for Chg Fwd
[2020-03-10 13:42] LABS: Alanine Aminotransferase 10 U/L (0-33); Alkaline Phosphatase 142 IU/L (35-105); Anion Gap 20.4 (5-19); Aspartate Amino Transferase 7 U/L (0-32); Blood Urea Nitrogen 17 mg/dL (6-20); Calcium 8.7 mg/dL (8.5-10.5); Carbon Dioxide 18 mmol/L (22-29); Chloride 95 mmol/L (98-107); Globulin 3.8 g/dL (1.3-4.6); Glomerular Filtration Rate 85.9 mL/min (90-130); Glucose 429 mg/dL (65-115); NT Pro B Type Natriuretic Pept 104 pg/mL (0-125); Osmolality Calculated 288 mOsm/kg (285-295); Potassium 4.4 mmol/L (3.5-5.1); Sodium 129 mmol/L (136-145); Total Bilirubin 0.2 mg/dL (0.15-1.2); Total Protein 6.8 g/dL (6.6-8.7)
--- NOTE | 2020-03-10 14:03 | P.HP_ITS ---
Providers/Chief Complaint Primary Care Provider: Luis Eduardo Huerta NP Chief Complaint: L ARM SWELLING, INFEC PORT SITE History of Present Illness Liliam Reynaga is a 59 year old female who had previously undergone mastectomy for left breast cancer and had expanders placed by Dr. Camarillo in [place]. Patient gets her care at [place] and we therefore do not have any records. Patient states that she was seen by her surgeon last week and had put on oral clindamycin and the plan was for removal of her expanders on 03/12/2020 pending COVID-19 results. Patient was sent to the ER by her wound care nurse due to concerns about worsening redness which has been ongoing for the last for the last 5 to 6 days. Review of Systems General: Reports: 10 or more systems reviewed and unremarkable except in HPI and below Medications/Allergies Home Medications Medication Instructions Recorded Confirmed Last Taken Type furosemide 40 mg tablet 40 mg PO BID PRN 03/31/19 03/10/20 09/02/19 History valacyclovir 1 gram tablet 1,000 mg PO PRN tab 03/31/19 03/10/20 11/09/19 His tory hydromorphone [Dilaudid] 2 mg PO TID PRN 04/16/19 03/10/20 11/08/19 History glipizide 10 mg tablet 10 mg PO BID 06/05/19 03/10/20 03/08/20 History diclofenac sodium 50 mg PO TID PRN 09/03/19 03/10/20 03/08/20 History pregabalin [Lyrica] 200 mg PO TID 09/03/19 03/10/20 03/08/20 History alpha lipoic acid 200 mg PO DAILY@09/23/19 03/10/20 03/08/20 History biotin 10,000 mcg PO DAILY@09/23/19 03/10/20 03/08/20 History diazepam 5 mg PO BID PRN 09/23/19 03/10/20 11/09/19 History Poly Antibiotic Ointment See Rx Instructions .ROUTE .COMPLEX 03/10/20 03/10/20 Unknown History albuterol sulfate 2.5 mg INHALATION Q4H PRN 03/10/20 03/10/20 Unknown History albuterol sulfate [ProAir HFA] 2 puff INHALATION Q6H PRN 03/10/20 03/10/20 Unknown History carboxymethylcellulose-glycern 1 - 2 drp OPHTHALMIC (EYE) PRN 03/10/20 03/10/20 Unknown History [Refresh Relieva] clindamycin HCl 300 mg PO TID 03/10/20 03/10/20 03/10/20 07:30 History fluconazole 150 mg PO PRN 03/10/20 03/10/20 Unknown History metformin 500 mg PO BID 03/10/20 03/10/20 03/08/20 History oxycodone-acetaminophen [Percocet] 1 - 2 tab PO Q4H PRN MDD 6 tabs 03/10/20 03/10/20 Unknown History tamoxifen 20 mg PO QAM 03/10/20 03/10/20 03/08/20 History torsemide 100 mg PO DAILY PRN 03/10/20 03/10/20 Unknown History Allergies Allergy/AdvReac Type Severity Reaction Status Date / Time bee venom protein (honey bee) Allergy Intermediate anaphylaxis Verified 03/10/20 14:06 cefaclor [From Ceclor] Allergy Intermediate Unknown Verified 03/10/20 14:06 ceftriaxone [From Rocephin] Allergy Intermediate Unknown Verified 03/10/20 14:06 ciprofloxacin [From Cipro] Allergy Intermediate Unknown Verified 03/10/20 14:06 codeine Allergy Intermediate Unknown Verified 03/10/20 14:06 meperidine [From Demerol] Allergy Intermediate Unknown Verified 03/10/20 14:06 milnacipran [From Savella] Allergy Intermediate Unknown Verified 03/10/20 14:06 prednisone Allergy Intermediate Unknown Verified 03/10/20 14:06 sulfabenzamide Allergy Intermediate Unknown Verified 03/10/20 14:06 venom-wasp Allergy ALGY-Hives Verified 03/10/20 14:06 adhesive tape AdvReac Intermediate Unknown Verified 03/10/20 14:06 PFSH Acute PFSH: Medical History Benign essential hypertension Bilateral carpal tunnel syndrome Cerebrovascular accident Chronic fatigue COPD (chronic obstructive pulmonary disease) Diabetes mellitus DJD (degenerative joint disease) GERD (gastroesophageal reflux disease) Hypothyroidism Infiltrating ductal carcinoma of left female breast Lymphadenopathy Migraine Other spondylosis with radiculopathy, lumbar region Sarcoidosis Surgical History H/O bilateral oophorectomy H/O coronary angioplasty H/O left mastectomy H/O: hysterectomy History of cholecystectomy Hx of appendectomy S/P CABG (coronary artery bypass graft) S/P carpal tunnel release [place]/17/2019, [facility] [place], open release of the median nerve at the left wrist. 07/07/2019 Dr. Emily Miller. Open release of the median nerve at the right wrist. Family History Father Cancer Diabetes Sister Cancer Diabetes Mother Diabetes Social History Smoking and tobacco status: never smoked Alcohol intake: never Lives independently: Yes Marital status: Single Current occupational status: disabled History of recent travel: No Vitals/I&O/Wt Last Vital Signs Temp 97.2 F L 03/10/20 13:47 Pulse 86 03/10/20 13:47 Resp 18 03/10/20 13:47 BP 113/85 03/10/20 13:47 Pulse Ox 97 03/10/20 13:47 Weight last 48 hrs Weight 280 lb Physical Exam Narrative: EXAM NARRATIVE: HEENT: Normocephalic Eye: Sclera /conjunctiva normal Respiratory and chest: Bilateral clear breath sounds on auscultation, Port-A-Cath right subclavian vein. No cellulitis or hematoma Infected left mastectomy site dot compliance coordinator with cellulitis and drainage of pus. Ma jority of the mastectomy scar is healed except on the medial aspect where there is open wound with drainage of pus Cardiovascular: Normal S1 and S2 heart sounds Abdomen: Soft to palpation Neurological: Oriented to place person and time Skin: Intact, no lesions appreciated on gross exam Data : 03/10/20 11:50 03/10/20 13:01 Micro: Microbiology 03/10/20 11:50 Blood Culture - Preliminary Blood SPECIMEN COLLECTED 03/10/20 11:50 Blood Culture - Preliminary Blood SPECIMEN COLLECTED A&P Assessment and plan (1) Infection of breast tissue dot compliance coordinator: 59-year-old female status post left mastectomy for breast cancer who now has an infected dot compliance coordinator with associated cellulitis. Patient was due for removal of the dot compliance coordinator by her primary surgeon in [place] in couple of days. We will therefore proceed with removal of the dot compliance coordinator under MAC today. Procedure, risks, benefits and alternatives have been discussed with the patient who wishes to proceed with surgery. Admit as inpatient to the hospital for IV antibiotics Consult hospitalist service for medical management Resume home medications Status: Acute Attestations Medical Necessity Statement*: Infected left breast dot compliance coordinator requiring removal and IV antibiotics Coding Level of Care Code Acute Treatment Manager for Hector Aguirre Diagnoses Infection of breast tissue dot compliance coordinator [id number]
[2020-03-10 15:18] LABS: Add Urine Microscopic? NO
[2020-03-10 15:52] LABS: Bilirubin Urine Neg (Negative); Blood Urine Neg (Negative); Glucose Urine UA 4+ (Normal); Ketones Urine 2+ (Negative); Leukocyte Esterase Urine Negative (Negative); Nitrate Urine Negative (Negative); Protein Urine Neg (Negative); Urine Appearance Clear (CLEAR); Urine Color Straw (Yellow); Urobilinogen Urine Norm (Negative); pH Urine 5 (5-7)
--- NOTE | 2020-03-10 16:15 | P.CONIM_ITS ---
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 She reports swelling started with a small area on Sunday. Since then it has significantly progressed. She states on Sunday she was prescribed clindamycin by her primary provider, although there has not been any improvement. She has been having malaise. Has been having chills. She reports history of infections in the past, and says may have had MRSA infection. It appears about 6 years ago she had group B strep bacteremia for which she was treated with IV vancomycin, with no endocarditis noted on echocardiogram. She also reports history of intra-abdominal abscess after hysterectomy many years ago. In ER she was afebrile, without leukocytosis. Noted sodium 129, bicarbonate 18, BUN 17, creatinine 0.7. Glucose 429. She has history of diabetes for which she takes Metformin and glipizide. Alkaline phosphatase noted 142. Albumin 3. Urine with 4+ glucose, 2+ ketones. Venous duplex of left upper extremity without DVT. Chest CT with noted large simple appearing fluid collection surrounding the port reservoir in the left upper thorax. 14 x 8 cm in size. Small amount of adjacent inflammatory changes and soft tissues over the thorax. No catheter is identified associated with the Port-A-Cath. Incidentally noted sclerotic changes in T6 and T10 with suspected metastatic disease. Incidentally noted hepatic steatosis. She states that her memory has been somewhat easy, especially after having 7 strokes in the past. Most recently about a year ago. She believes that her Port-A-Cath was placed probably about 3 months ago. She states she had just recently completed chemotherapy and radiation for breast cancer and follows with Dr. Morton who is part of [facility] oncology team in [facility]. She reports she was told recently she was in remission in terms of her cancer. She continues on tamoxifen. Sclerotic lesions in her vertebra. May be new per discussion with her and her daughter. 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 In ER blood cultures were collected. She received 1 L bolus of normal saline. Was started on vancomycin and Zosyn. She is admitted by surgery with medicine consulting and going to the OR for explantation of Port-A-Cath, breast tire regrooving machine operator, wound washout and culture. She reports otherwise has been in baseline state of health. Associated with the soft tissue infection she has had nausea, episodes of vomiting, and very poor oral intake. Denies taking NSAIDs, although I do see diclofenac on her medication list. She otherwise reports history of sleep apnea for which she uses CPAP at night. She is history of asthma, although recently has not been more short of breath than usual. In terms of CODE STATUS, names her daughter as medical power of civil rights attorney, and states will be willing to receive cardiopulmonary resuscitation in case of cardiopulmonary arrest, however, would not want prolonged life support. Review of Systems Const: Reports: chills, body aches and malaise; Denies: fever(s) Eyes: Denies: change in vision or eye redness ENMT: Denies: throat pain, oral sores or ear or mastoid pain Card: Denies: chest pain, edema, pre-syncope or dyspnea on exertion Resp: Denies: dyspnea, productive cough, change in phlegm color or hemoptysis GI: Denies: abdominal pain, nausea, vomiting, diarrhea, constipation, hematochezia or melena : Denies: flank pain, urinary frequency or hematuria Musc: Reports: extremity swelling (R arm swelling, patchy erythema extending from redness, swelling of L chest); Denies: back pain, joint swelling or joint redness Skin/Breast: Reports: rash and new lesions; Denies: sores Neuro: Denies: headache(s), numbness in extremities, weakness in extremities, dizziness, confusion or seizure-like activity Endo: Denies: polyuria or polydipsia Facundo/Lymph: Denies: easy bleeding or purpura All/Imm: Denies: urticaria, throat swelling or tongue swelling Meds/Allergies Home Medications and Allergies Home Medications Medication Instructions Recorded Confirmed Last Taken Type furosemide 40 mg tablet 40 mg PO BID PRN 03/31/19 03/10/20 09/02/19 History valacyclovir 1 gram tablet 1,000 mg PO PRN tab 03/31/19 03/10/20 11/09/19 History hydromorphone [Dilaudid] 2 mg PO TID PRN 04/16/19 03/10/20 11/08/19 History glipizide 10 mg tablet 10 mg PO BID 06/05/19 03/10/20 03/08/20 History diclofenac sodium 50 mg PO TID PRN 09/03/19 03/10/20 03/08/20 History pregabalin [Lyrica] 200 mg PO TID 09/03/19 03/10/20 03/08/20 History alpha lipoic acid 200 mg PO DAILY@09/23/19 03/10/20 03/08/20 History biotin 10,000 mcg PO DAILY@09/23/19 03/10/20 03/08/20 History diazepam 5 mg PO BID PRN 09/23/19 03/10/20 11/09/19 History Poly Antibiotic Ointment See Rx Instructions .ROUTE .COMPLEX 03/10/20 03/10/20 U nknown History albuterol sulfate 2.5 mg INHALATION Q4H PRN 03/10/20 03/10/20 Unknown History albuterol sulfate [ProAir HFA] 2 puff INHALATION Q6H PRN 03/10/20 03/10/20 Unknown History carboxymethylcellulose-glycern 1 - 2 drp OPHTHALMIC (EYE) PRN 03/10/20 03/10/20 Unknown History [Refresh Relieva] clindamycin HCl 300 mg PO TID 03/10/20 03/10/20 03/10/20 07:30 History metformin 500 mg PO BID 03/10/20 03/10/20 03/08/20 History tamoxifen 20 mg PO QAM 03/10/20 03/10/20 03/08/20 History torsemide 100 mg PO DAILY PRN 03/10/20 03/10/20 Unknown History Allergies Allergy/AdvReac Type Severity Reaction Status Date / Time bee venom protein (honey bee) Allergy Intermediate anaphylaxis Verified 03/10/20 14:06 cefaclor [From [facility]] Allergy Intermediate Unknown Verified 03/10/20 14:06 ceftriaxone [From Rocephin] Allergy Intermediate Unknown Verified 03/10/20 14:06 ciprofloxacin [From Cipro] Allergy Intermediate Unknown Verified 03/10/20 14:06 codeine Allergy Intermediate Unknown Verified 03/10/20 14:06 meperidine [From Demerol] Allergy Intermediate Unknown Verified 03/10/20 14:06 milnacipran [From Savella] Allergy Intermediate Unknown Verified 03/10/20 14:06 prednisone Allergy Intermediate Unknown Verified 03/10/20 14:06 sulfabenzamide Allergy Intermediate Unknown Verified 03/10/20 14:06 venom-wasp Allergy ALGY-Hives Verified 03/10/20 14:06 adhesive tape AdvReac Intermediate Unknown Verified 03/10/20 14:06 PFSH Acute PFSH: Medical History (Updated 03/10/20 @ 16:36 by Aiden Sanchez MD) Benign essential hypertension Bilateral carpal tunnel syndrome Cerebrovascular accident Chronic fatigue COPD (chronic obstructive pulmonary disease) Diabetes mellitus DJD (degenerative joint disease) GERD (gastroesophageal reflux disease) Hypothyroidism Infiltrating ductal carcinoma of left female breast Lymphadenopathy Migraine Other spondylosis with radiculopathy, lumbar region Sarcoidosis Streptococcal bacteremia Surgical History H/O bilateral oophorectomy H/O coronary angioplasty H/O left mastectomy H/O: hysterectomy History of cholecystectomy Hx of appendectomy S/P CABG (coronary artery bypass graft) S/P carpal tunnel release 04/17/2019, [facility], open release of the median nerve at the left wrist. 07/07/2019 Dr. Emily Miller. Open release of the median nerve at the right wrist. Family History Father Cancer Diabetes Sister Cancer Diabetes Mother Diabetes Social History Smoking and tobacco status: never smoked Alcohol intake: current Alcohol intake frequency: other Alcohol use comment: once a year Substance/Drug Use: never Lives independently: Yes Marital status: Current occupational status: disabled History of recent travel: No Vitals/I&O/Wt Last Vital Signs Temp 97.2 F L 03/10/20 13:47 Pulse 86 03/10/20 13:47 Resp 18 03/10/20 13:47 BP 113/85 03/10/20 13:47 Pulse Ox 97 03/10/20 13:47 03/10/20 03/10/20 03/10/20 06:59 14:59 22:59 Intake Total 50 / 50 Balance 50 / 50 Weight last 48 hrs Weight 127.006 kg Physical Exam Narrative: EXAM NARRATIVE: Daughter is accompanying her at bedside. Const: COMMON NORMALS: no acute distress, patient oriented x3 and alert GENERAL APPEARANCE: cooperative and anxious; not comfortable (Uncomfortable due to left chest wall pain, malaise) ORIENTATION/CONSCIOUSNESS: Yes awake HENMT: COMMON NORMALS: oropharynx normal Neck/C-Spine: COMMON NORMALS: no JVD Chest: OTHER: Swelling over the left chest wall, 1 cm opening with some protrusion of subcutaneous adipose tissue, with some green drainage. Redness and swelling expands into the left axilla, and also with swelling of the left arm with patchy erythema. Resp: COMMON NORMALS: normal respiratory effort and clear to auscultation bilaterally AUSCULTATION: clear to auscultation bilaterally Cardio: COMMON NORMALS: no JVD, regular rhythm, S1 normal heart sound present, S2 normal heart sound present and No murmurs present (Cardio) RHYTHM: regular rhythm HEART SOUNDS: S1 normal heart sound present and S2 normal heart sound present GI: COMMON NORMALS: Normal to inspection, nondistended, normoactive bowel sounds present, Soft to palpation and non-tender PALPATION: Yes Soft to palpation Extremity: COMMON NORMALS: no joint enlargement and no pedal edema OTHER: Left arm swelling, patchy erythema extending away down from chest down towards the hand Neuro: COMMON NORMALS: patient oriented x3 and moves all extremities SENSORIUM/ORIENTATION: Yes alert Skin: COMMON NORMALS: no rashes or lesions noted GENERAL SKIN EXAM: no rashes or lesions noted Data Micro: Micro: Microbiology 03/10/20 11:50 Blood Culture - Pr eliminary Blood SPECIMEN ELLIE PEÑA 03/10/20 11:50 Blood Culture - Pr eliminary Blood SPECIMEN [facility] A&P Assessment and plan (1) Abscess of breast: She is status post left mastectomy, status post chemoradiation for breast cancer. Completed close to a month ago. 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 Appears to have surrounding infection, with abscess and cellulitis of the left breast, left arm cellulitis and extensive edema, with purulent drainage and a small opening at inferior medial, parasternal portion of the left chest. Currently undergoing Port-A-Cath and breast tire regrooving machine operator removal wound washout and culturing. Started on Zosyn vancomycin. Continue Db. Follow blood cultures. Wound cultures. Elevate left upper extremity. 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 Status: Acute (3) Infection due to Port-A-Cath: As above. Of note no catheter identified associated with the Port-A-Cath. There is some history of trauma and fall, and Port-A-Cath inverting reportedly, and appears she had also had a procedure to correct this. Since catheter is not seen elsewhere in the chest, perhaps catheter portion was removed during the procedure? Port-A-Cath to be removed today. Status: Acute (4) Hyponatremia: Noted mild hyponatremia 129. Hold diuretics for now. Monitor sodium. Status: Acute (5) Alkaline phosphatase elevation: With noted sclerotic lesions T6, T10. Discussed with her and her daughter. Will check GGT. No abdominal pain. Status: Acute (6) Lesion of vertebra: Noted pleuritic lesion in T6, T10. They are not aware of prior history of these. Perhaps these may be new. Will need to follow-up with her oncologist. Status: Acute (7) Breast cancer: Status post left-sided mastectomy, chemo and radiation. Continues on tamoxifen. Follows with Dr. Morton and cancer team at [facility] in [place]. Status: Acute (8) Nausea and vomiting: With associated malaise. I see that she has diclofenac listed in her home medications. Will need to confirm if she has been taking this. May have either nausea vomiting associated with infection, or perhaps antibiotic. Otherwise may be NSAID induced gastritis. Continue famotidine. Symptomatic nausea control. Sips and chips or clears depending on symptoms. Avoid NSAIDs. Status: Acute Additional A&P Information PADMA: Nightly CPAP. Takes valacyclovir as needed for herpes labialis Takes fluconazole as needed for fungal infections which she was getting during chemotherapy Consult Attestations Medical Necessity Statement: Admission of over 2 midnights even if needed for assessment management of cellulitis and abscess of left breast, breast tissue tire regrooving machine operator and Port-A-Cath. 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
--- NOTE | 2020-03-10 16:34 | PM.OP ---
Operative Report Date of procedure: March 10, 2020 Pre-op Diagnosis: Cellulitis left chest wall status post mastectomy with reconstruction Pre-op Diagnosis: Suspected infection of left breast belt maker helper Post-op diagnosis: same Procedure Done: Explantation of left breast belt maker helper Pathology: Aerobic anaerobic wound cultures, belt maker helper send as gross Surgeon: Lazaro Benitez Anesthesia: General Estimated blood loss (mL): 10 Condition: stable Disposition: PACU Procedure: The patient was taken to the operating room and intubated under general anesthesia. Patient received IV antibiotics preop. There was small amount of pus with an open wound on the medial aspect of the muscle flap at the site of the left mastectomy reconstruction. The opening was extended medially and the elliptical incision was opened laterally. Aerobic and anaerobic wound cultures were obtained. The belt maker helper was removed without difficulty and sent to pathology. The wound was irrigated saline and a 10 flat SASKIA drain was placed on the medial aspect of the wound. The skin was loosely approximated using vertical mattress 3-0 Prolene sutures. Fluffs and support bras were used to cover the wound. The patient was extubated and transferred to recovery room in stable condition.
[2020-03-10] MEDS: fentaNYL 50 mcg/mL INJ 2mL IVP (16:51)
--- NOTE | 2020-03-10 16:54 | ANE.PACU2 ---
Inpatient post-anesthesia follow up: Airway intact: Yes Vital signs: Temperature 97.2 F Pulse Rate [Apical ] 91 Pulse Rate 86 Respiratory Rate 18 Blood Pressure [Ri ght Arm] 151/91 Blood Pressure 113/85 Pulse Oximetry 97 Oxygen Delivery Me thod Room Air Oxygen Flow Rate Fraction of Inspir ed Oxygen Hydration adequate: Yes Nausea and vomiting: No Pain level: 4 Mental status: Baseline
--- NOTE | 2020-03-10 16:59 | SUR.PHASEI ---
PT AWAKE SEE PAIN MED GIVEN DRESSING D/I PT CARE ASSUMED BY Bao MYERS.
--- NOTE | 2020-03-10 18:21 | PC.NURSE ---
1700 LATE ENTRY UP VIA GURNEY FROM OR WITH BED SHEETS SATURATED IN BLOOD AND BETADINE - X3 ASSIST TO CHANGE LINENS - PT AGITATED AND REPEATEDLY STATING PUT ME IN MY OWN GOWN EDUCATED PT TO NEED FOR HOSPITAL GOWN DUE TO CONTINUED DRAINAGE WELL ABILITY TO VISUALIZE SITE AND LEFT ARM - PT STATED DONT ASK ME QUESTIONS, I CAN'T DO NUMBERS, GILLIAN HAD 3 STROKES AND I CANT ANSWER THESE QUESTIONS - REGARDING ADMISSION QUESTIONS - CURRENTLY ABLE TO TELL THIS NURSE NAME, DATE, TIME AND SITUATION - LEFT CHEST WALL NOTED TO HAVE LARGE AREA OF REDNESS AND EDEMA - LEFT BREAST AREA WITH GAUZE NOTED TO BE C/D/I - SASKIA IN PLACE - EMPTIED 50CC OF SANGINOUS DRAINAGE IMMEDIATELY UPON ARRIVING TO FLOOR - REDNESS EXTENDS ENTIRELY TO LEFT ARM WITH LARGE AREAS OF WARM SCATTERED REDNESS - LEFT HAND NOTED TO HAVE REDNESS WELL EDEMA AT 1+ - SURGICAL BRA IN PLACE - LUNGS COARSE THROUGHOUT - ABD SOFT WITH NO DISTENTION - BS HYPOACTIVE - BLE SCD'S - LINENS CHANGED - ORIENTATION TO ROOM PROVIDED PER THIS NURSE - WILL CONTINUE TO MONITOR - PT STATES SHE HAS A PAC TO RIGHT CHEST WALL - CAN PALPATE WHAT FEELS A PAC PER THIS NURSE
[2020-03-10 20:45] LABS: Glucose Point of Care 459 mg/dL (70-110)
[2020-03-10] MEDS: pregabalin 100 mg Capsule 200 MG PO (22:02)
[2020-03-10] MEDS: diazePAM 5 mg Tablet PO (22:02)
[2020-03-10] MEDS: famotidine 20 mg/2 mL INJ IVP (23:14)
[2020-03-11] VITALS (11 sets, daily range): BP systolic 102–147; BP diastolic 59–88; PULSE 67–83; RESP 16–19; TEMP 36.3–36.9; O2SAT 90–98
[2020-03-11 00:17] LABS: Gamma Glutamyl Transferase 17 U/L (5-36)
[2020-03-11] MEDS: vancomycin 1,000 MG in sodium chloride 0.9% 250 ML 250 MG IV ×2 (01:06→15:54)
[2020-03-11] MEDS: sodium chloride 0.9% 1,000 ML 50 ML IV ×2 (01:07→21:12)
[2020-03-11] MEDS: piperacillin-tazobactam 3.375 GM in sodium chloride 0.9% (plus) 50 ML IV ×3 (02:34→18:13)
[2020-03-11 06:32] LABS: Glucose Point of Care 445 mg/dL (70-110)
[2020-03-11] MEDS: famotidine 20 mg/2 mL INJ IVP ×2 (10:20→21:13)
[2020-03-11] MEDS: pregabalin 100 mg Capsule 200 MG PO ×3 (10:21→21:13)
--- NOTE | 2020-03-11 10:58 | PC.CHAP ---
Pastoral Care Encounter/Spiritual Assessment Type of Contact [] Declined heel seat flap stapler visit [] Patient/Family/Request visit [] Outpatient visit [] Follow-up visit [] Physician referral [] Code/Alert [] Routine visit [x] Staff referral [] Actively dying [] Patient sleeping [] Family support [] [] Out of room [] Palliative care [] [x] Receiving care in room [] Pre-surgical visit [] Trauma [x] Long length of stay [] ICU visit [] Other: Relational/Emotional Strength [x] Patient feels connected with others/family/visitors/staff [] Distress [] Loneliness/isolation [] Abandonment Spirituality of Patient [x] Person of Anjali [] Attends Yazidism of their Anjali [x] Believes in Prayer [] Reads Bible or Anglican materials [] There are Spiritual issues to be addressed Thread Grinder Tool Interventions [x] Prayer [x] Active listening [x] Non-anxious presence [x] Spiritual/emotional support [] Crisis/trauma care [x] Spiritual counseling [] Bereavement support [] Provided bereavement packet [] Provided Bible/devotional materials [] Provided toy/stuffed animal, coloring book to patient or family member [] Provided Communion [] Anointing/[place] [] Salvation [x] Completed spiritual assessment [] Other: Impact on Illness or Injury [] Angry [x] Fearful [] Anxious [] Often cries [] Exhaustion [] Unable to work [] Unable to attend restorationist [] Unable to walk/stand [] Unable to read [] Unable to drive [] Unable to eat/drink [] Unable to sleep [] Unable to be with family [] Patient intubated [] Other: Summary negative attitude about recovery, nures with her, doesn't know about her feelings wants to get better?? Time spent with patient 10 mins
--- NOTE | 2020-03-11 11:59 | PC.NURSE ---
[facility] i reported this to the nurse. not able to test opposite hand.
[2020-03-11 12:39] LABS: Basophils % 0.3 %; Hematocrit 44.9 % (37.0-47.0); Hemoglobin 13.4 g/dL (11.5-15.3); Lymphocytes # 0.9 10^3/uL (0.8-4.8); Lymphocytes % 11.8 %; Mean Corpuscular HGB Conc 29.8 g/dL (30.0-36.0); Mean Corpuscular Volume 83.9 fL (81-99); Mean Platelet Volume 9.6 fL (7.4-10.4); Monocytes # 0.4 10^3/uL (0.2-0.9); Monocytes % 5.4 %; Neutrophils # 6.46 10^3/uL (1.8-7.7); Neutrophils % 80.9 %; Nucleated Red Blood Cells % 0 %; Platelet Count 250 10^3/cmm (130-400); Red Blood Count 5.35 10^6/uL (4.1-5.3); Red Cell Distribution Width 15.9 % (12.1-15.1)
[2020-03-11 13:05] LABS: Anion Gap 25.1 (5-19); Blood Urea Nitrogen 21 mg/dL (6-20); Calcium 8.7 mg/dL (8.5-10.5); Carbon Dioxide 13 mmol/L (22-29); Chloride 98 mmol/L (98-107); Glomerular Filtration Rate 73.7 mL/min (90-130); Glucose 447 mg/dL (65-115); Osmolality Calculated 294 mOsm/kg (285-295); Potassium 5.1 mmol/L (3.5-5.1); Sodium 131 mmol/L (136-145)
[2020-03-11 13:34] LABS: Glucose Point of Care 501 mg/dL (70-110)
--- NOTE | 2020-03-11 15:12 | PM.PN ---
Vitals/I&O/Wt Last Vital Signs Temp 97.3 F L 03/11/20 11:58 Pulse 78 03/11/20 11:58 Resp 18 03/11/20 14:27 BP 128/75 03/11/20 11:58 Pulse Ox 98 03/11/20 11:58 03/11/20 03/11/20 03/11/20 06:59 14:59 22:59 Intake Total 350 / 2360 720 / 720 Output Total 1515 / 2475 Balance -1165 / -115 720 / 720 Weight last 48 hrs Weight 280 lb Physical Exam Narrative: EXAM NARRATIVE: Left chest: erythema around mastectomy scar is improved, SASKIA drain output is serosanguineous Data : 03/11/20 12:10 03/11/20 12:10 Micro: Microbiology 03/10/20 16:10 Gram Stain - Final Breast - #1 Wound Culture - Preliminary 03/10/20 11:50 Blood Culture - Preliminary Blood NEGATIVE TO DATE 03/10/20 11:50 Blood Culture - Preliminary Blood NEGATIVE TO DATE A&P Assessment and plan (1) 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 Status: Acute Attestations Medical Necessity Statement*: s/p removal of dispatcher tow truck, doing better Coding Level of Care Code Acute Metal Rivet Machine Operator for Hector Aguirre Diagnoses Infection of breast tissue dispatcher tow truck T85.79XA
[2020-03-11 15:59] LABS: Glucose Point of Care 359 mg/dL (70-110)
[2020-03-11 16:46] LABS: Glucose Point of Care 352 mg/dL (70-110)
--- NOTE | 2020-03-11 20:58 | PM.PN ---
Subjective Subjective: Interval history: States she is feeling a bit better. She is doing well after surgery. Redness is decreasing over her left chest. Swelling is perhaps slightly better, but still persistent. She also notes that she has been having food sticking in her throat somewhat making it difficult to swallow. She has not really had this issue before. Vitals/I&O/Wt Last Vital Signs Temp 97.9 F 03/11/20 20:53 Pulse 78 03/11/20 20:53 Resp 16 03/11/20 20:53 BP 102/59 03/11/20 20:53 Pulse Ox 96 03/11/20 20:53 03/11/20 03/11/20 03/11/20 06:59 14:59 22:59 Intake Total 350 / 2360 770 / 770 490 / 1260 Output Total 1515 / 2475 Balance -1165 / -115 770 / 770 490 / 1260 Weight last 48 hrs Weight 127.006 kg Physical Exam Const: COMMON NORMALS: no acute distress, patient oriented x3 and alert GENERAL APPEARANCE: cooperative, comfortable and anxious NUTRITIONAL APPEARANCE: obese ORIENTATION/CONSCIOUSNESS: Yes awake HENMT: COMMON NORMALS: oropharynx normal Neck/C-Spine: COMMON NORMALS: no JVD Chest: OTHER: Reduced swelling over the left chest wall with improving erythema. Left arm in lymphedema wraps. Resp: COMMON NORMALS: normal respiratory effort and clear to auscultation bilaterally AUSCULTATION: clear to auscultation bilaterally Cardio: COMMON NORMALS: no JVD, regular rhythm, S1 normal heart sound present, S2 normal heart sound present and No murmurs present (Cardio) RHYTHM: regular rhythm HEART SOUNDS: S1 normal heart sound present and S2 normal heart sound present GI: COMMON NORMALS: Normal to inspection, nondistended, normoactive bowel sounds present, Soft to palpation and non-tender PALPATION: Yes Soft to palpation Extremity: COMMON NORMALS: no joint enlargement and no pedal edema OTHER: Left arm swelling. Lymphedema wraps. Neuro: COMMON NORMALS: patient oriented x3 and moves all extremities SENSORIUM/ORIENTATION: Yes alert Skin: COMMON NORMALS: no rashes or lesions noted GENERAL SKIN EXAM: no rashes or lesions noted Data : 03/11/20 12:10 03/11/20 12:10 Micro: Microbiology 03/10/20 16:10 Gram Stain - Final Breast - #1 Wound Culture - Preliminary 03/10/20 11:50 Blood Culture - Preliminary Blood NEGATIVE TO DATE 03/10/20 11:50 Blood Culture - Preliminary Blood NEGATIVE TO DATE A&P Assessment and plan (1) Abscess of breast: Status post removal of breast tissue hands parter its port in the left chest. There is improvement in swelling, erythema over the left chest. Edema persists in the left arm. Lymphedema wraps in place. Requesting to elevate extremity. Follow-up culture results. Continue IV antibiotics today. Cultures so far unrevealing. May need empiric therapy at discharge, would include MRSA coverage given she reports history of MRSA in the past. Status: Acute (2) Infection of breast tissue hands parter: As above. Status: Acute (3) Infection due to Port-A-Cath: Infection of Port-A-Cath for breast tissue hands parter. Right chest port without any problems currently. Follow-up blood cultures. Status: Acute (4) Hyponatremia: Improving. Status: Acute (5) Alkaline phosphatase elevation: With noted sclerotic lesions T6, T10. Discussed with her and her daughter. Normal GGT. No abdominal pain. Status: Acute (6) Lesion of vertebra: Noted pleuritic lesion in T6, T10. They are not aware of prior history of these. Perhaps these may be new. Will need to follow-up with her oncologist. Status: Acute (7) Breast cancer: Status post left-sided mastectomy, chemo and radiation. Continues on tamoxifen. Follows with Dr. Morton and cancer team at [facility] in [place]. Status: Acute (8) Nausea and vomiting: Improved. On presentation with associated malaise. I see that she has diclofenac listed in her home medications. Will need to confirm if she has been taking this. May have either nausea vomiting associated with infection, or perhaps antibiotic. Otherwise may be NSAID induced gastritis. Continue famotidine. Symptomatic nausea control. Avoid NSAIDs. Status: Acute Additional A&P Information Oropharyngeal dysphagia: Reports food sticking in throat. Has not had this issues previously. Some of this may be secondary to vomiting preadmission. Also has had intubation for surgical procedure. Does not have dysphonia. On oral examination does not have any swelling in the mouth. Tongue is not swollen. Does have somewhat enlarged tonsils, although he does not have any pain or erythema or other signs of pharyngitis. We will switch diet to mechanical soft for now. Get speech therapy assessment. If not improving, consider additional evaluation by swallow study. PADMA: Nightly CPAP. Takes valacyclovir as needed for herpes labialis Takes fluconazole as needed for fungal infections which she was getting during chemotherapy Attestations Medical Necessity Statement*: Continue admission for assessment management of abscess and cellulitis of left chest, left arm which did not respond to outpatient treatment and required removal of breast tissue hands parter. Coding Level of Care Code Acute Conveyor System Dispatcher for [facility] Jaked Diagnoses Abscess of breast N61.1 Infection of breast tissue hands parter T85.79XA Infection due to Port-A-Cath T80.219A Hyponatremia E87.1 Alkaline phosphatase elevation R74.8 Lesion of vertebra M89.9 Breast cancer C50.919 Nausea and vomiting R11.2
[2020-03-11 21:26] LABS: Glucose Point of Care 357 mg/dL (70-110)
[2020-03-11 21:30] LABS: Estmated Average Glucose 369; Hemoglobin A1C 14.5 % (4.0-6.0)
[2020-03-11] MEDS: insulin glargine 100 units/1 mL 10 UNIT SUBCUT (21:40)
[2020-03-12] VITALS: BP 110/67; PULSE 69; RESP 16; TEMP 36.6; O2SAT 97
[2020-03-12] MEDS: vancomycin 1,000 MG in sodium chloride 0.9% 250 ML 250 MG IV ×2 (00:54→12:03)
[2020-03-12] MEDS: piperacillin-tazobactam 3.375 GM in sodium chloride 0.9% (plus) 50 ML IV ×2 (02:51→10:21)
[2020-03-12 03:51] VITALS: BP 109/66; PULSE 66; RESP 17; TEMP 36.3; O2SAT 99
[2020-03-12 06:51] LABS: Glucose Point of Care 311 mg/dL (70-110)
[2020-03-12 07:55] VITALS: BP 131/82; PULSE 72; RESP 17; TEMP 36.4; O2SAT 97
[2020-03-12] MEDS: pregabalin 100 mg Capsule 200 MG PO ×2 (08:17→15:28)
[2020-03-12] MEDS: famotidine 20 mg/2 mL INJ IVP (10:21)
[2020-03-12 10:52] LABS: Basophils % 0.2 %; Eosinophils # 0.1 10^3/uL (0.0-0.8); Hematocrit 39.9 % (37.0-47.0); Hemoglobin 12.3 g/dL (11.5-15.3); Mean Corpuscular HGB Conc 30.8 g/dL (30.0-36.0); Mean Corpuscular Hemoglobin 25.6 pg (28.0-34.0); Mean Platelet Volume 9.1 fL (7.4-10.4); Monocytes # 0.3 10^3/uL (0.2-0.9); Monocytes % 5.5 %; Neutrophils % 71.3 %; Nucleated Red Blood Cells % 0 %; Platelet Count 216 10^3/cmm (130-400); Red Blood Count 4.81 10^6/uL (4.1-5.3); Red Cell Distribution Width 16.1 % (12.1-15.1); White Blood Count 4.8 10^3/uL (4.0-10.0)
[2020-03-12 11:12] LABS: Blood Urea Nitrogen 15 mg/dL (6-20); Calcium 8.6 mg/dL (8.5-10.5); Carbon Dioxide 19 mmol/L (22-29); Chloride 103 mmol/L (98-107); Glomerular Filtration Rate 102.7 mL/min (90-130); Glucose 274 mg/dL (65-115); Osmolality Calculated 283 mOsm/kg (285-295); Sodium 131 mmol/L (136-145)
[2020-03-12 11:13] LABS: Anion Gap 12.9 (5-19); Potassium 3.9 mmol/L (3.5-5.1)
[2020-03-12 11:24] VITALS: BP 131/66; PULSE 74; RESP 18; TEMP 36.7; O2SAT 96
[2020-03-12 11:31] LABS: Glucose Point of Care 345 mg/dL (70-110)
--- NOTE | 2020-03-12 14:26 | PC.NURSE ---
Dr. Benitez in to see patient and removed SASKIA drain, new order received for triple abx order and apply tefla.
--- NOTE | 2020-03-12 14:34 | PM.PN ---
Subjective Subjective: Interval history: Pain, redness and swelling on the left chest and left arm is significantly improved, patient wants to go home since she is not happy that she did not get her second lunch. Blood cultures so far have been negative Vitals/I&O/Wt Last Vital Signs Temp 98.1 F 03/12/20 11:24 Pulse 74 03/12/20 11:24 Resp 18 03/12/20 11:24 BP 131/66 03/12/20 11:24 Pulse Ox 96 03/12/20 11:24 03/11/20 03/12/20 03/12/20 22:59 06:59 14:59 Intake Total 1540 / 2730 420 / 2730 850 / 850 Output Total Balance 1525 / 2705 410 / 2705 850 / 850 Physical Exam Narrative: EXAM NARRATIVE: Left chest: Incisions healing well, cellulitis and edema significantly improved, SASKIA drain output is serosanguineous which I discontinued today Data : 03/12/20 10:34 03/12/20 10:34 Micro: Microbiology 03/10/20 16:10 Gram Stain - Final Breast - #1 Wound Culture - Preliminary Strep agalactiae - (group b) 03/10/20 11:50 Blood Culture - Preliminary Blood NEGATIVE TO DATE 03/10/20 11:50 Blood Culture - Preliminary Blood NEGATIVE TO DATE A&P Assessment and plan (1) Bilateral carpal tunnel syndrome: Status post removal of left breast cooker loader. Patient has been on IV vancomycin and Zosyn and her erythema and edema is almost resolved. Patient also has a lymphedema wrap on the left upper extremity. Blood cultures: Negative so far We will discharge home on oral clindamycin that she had been taking previously SASKIA drain discontinued Home health set of her lymphedema wrap Follow-up with Dr. Lees our vocational rehabilitation counselor since her A1c was 14 Status: Resolved (2) Post-operative state: Status: Resolved (3) S/P carpal tunnel release: Status: Resolved (4) Encounter for removal of tissue cooker loader of breast: Status: Acute Attestations Medical Necessity Statement*: Status post removal of left breast cooker loader, DC home today Coding Level of Care Code Acute Remote Encoding Center Manager for [facility] Diagnoses Bilateral carpal tunnel syndrome G56.03 Post-operative state Z98.890 S/P carpal tunnel release Z98.890 Encounter for removal of tissue cooker loader of breast Z45.819
--- NOTE | 2020-03-12 14:35 | P.DS_ITS ---
Discharge Providers Date of Admission: 03/10/20 16:33 Date of Discharge: March 12, 2020 Attending Provider at Admission: Lazaro Benitez MD Attending Provider at Discharge: Lazaro Benitez MD Primary Care Provider: Luis Eduardo Huerta NP Diagnoses at Discharge Discharge Diagnosis (1) Encounter for removal of tissue asphalt spreader operator of breast: Status: Acute (2) Diabetes mellitus: Status: Acute Reason for Visit Reason for Visit: L ARM SWELLING, INFEC PORT SITE Hospital Course Hospital Course This is a 55-year-old female status post left mastectomy with LD flap and asphalt spreader operator placement for reconstruction. Patient had developed erythema of the left upper extremity and chest wall and was placed on clindamycin by her plastic surgeon with plan for removal of the asphalt spreader operator this week. Patient presented to the ER with worsening pain redness and swelling of the left chest and upper extremity. On initial evaluation there was drainage of pus noted from the medial aspect of the LAD flap. Patient was taken to the operating room where the asphalt spreader operator was removed, wound irrigated and skin edges were loosely approximated. She was kept in the hospital for 2 days receiving IV vancomycin and Zosyn. Her blood cultures are negative at 48 hours. Her A1c during hospital course was 14 and therefore she was started on insulin with plan for follow-up with her billing assistant as an outpatient. She will also follow-up with her plastic surgeon next week. Discharge Data Data Completed and Pending: Completed Studies During Hospitalization Category Date Time Status CT chest w con* 7 1260 Stat Cat Scan 03/10/20 11:42 [place] [address] Stat Ultrasound 03/10/20 11:40 Completed Pending at discharge Category Date Time Status Anaerobic Culture Routine Lab 03/10/20 16:10 Results Basic Metabolic P medhat AM LABS Lab 03/13/20 04:00 Ordered Blood Culture Sta t Lab 03/10/20 11:50 Results Complete Blood Co unt w/Auto AM LABS Lab 03/13/20 04:00 Ordered Wound Culture and Gram Stain Routin e Lab 03/10/20 16:10 Results Pathology: Surgic al [PTH] Routine Pth 03/10/20 16:49 Received Labs from last 24 hours 03/12/20 03/12/20 03/12/20 11:27 10:34 10:34 WBC 4.8 Corrected WBC RBC 4.81 Hgb 12.3 Hct 39.9 MCV 83.0 MCH 25.6 L MCHC 30.8 RDW 16.1 H Plt Count 216 MPV 9.1 Gran % Neut % (Auto) 71.3 Lymph % (Auto) 21.0 Stewart % (Auto) 5.5 Eos % (Auto) 1.0 Baso % (Auto) 0.2 Neut # (Auto) 3.40 Lymph # (Auto) 1.0 Stewart # (Auto) 0.3 Eos # (Auto) 0.1 Baso # (Auto) 0.0 Absolute Gran (aut o) Nucleated RBC % (a uto) 0 Nucleated RBCs # 0.0 Sodium 131 L Potassium 3.9 Chloride 103 Carbon Dioxide 19 L Anion Gap 12.9 BUN 15 Creatinine 0.6 GFR Calculation 102.7 Glucose 274 H POC Glucose 345 H Estimat Average Gl ucose Hemoglobin A1c Calculated Osmolal ity 283 L Calcium 8.6 03/12/20 03/12/20 03/12/20 06:34 05:45 05:45 WBC Cancelled Corrected WBC Cancelled RBC Cancelled Hgb Cancelled Hct Cancelled MCV Cancelled MCH Cancelled MCHC Cancelled RDW Cancelled Plt Count Cancelled MPV Cancelled Gran % Cancelled Neut % (Auto) Cancelled Lymph % (Auto) Cancelled Stewart % (Auto) Cancelled Eos % (Auto) Cancelled Baso % (Auto) Cancelled Neut # (Auto) Cancelled Lymph # (Auto) Cancelled Stewart # (Auto) Cancelled Eos # (Auto) Cancelled Baso # (Auto) Cancelled Absolute Gran (aut o) Cancelled Nucleated RBC % (a uto) Cancelled Nucleated RBCs # Cancelled Sodium Cancelled Potassium Cancelled Chloride Cancelled Carbon Dioxide Cancelled Anion Gap Cancelled BUN Cancelled Creatinine Cancelled GFR Calculation Cancelled Glucose Cancelled POC Glucose 311 H Estimat Average Gl ucose Hemoglobin A1c Calculated Osmolal ity Cancelled Calcium Cancelled 03/11/20 03/11/20 03/11/20 20:56 16:41 15:53 WBC Corrected WBC RBC Hgb Hct MCV MCH MCHC RDW Plt Count MPV Gran % Neut % (Auto) Lymph % (Auto) Stewart % (Auto) Eos % (Auto) Baso % (Auto) Neut # (Auto) Lymph # (Auto) Stewart # (Auto) Eos # (Auto) Baso # (Auto) Absolute Gran (aut o) Nucleated RBC % (a uto) Nucleated RBCs # Sodium Potassium Chloride Carbon Dioxide Anion Gap BUN Creatinine GFR Calculation Glucose POC Glucose 357 H 352 H 359 H Estimat Average Gl ucose Hemoglobin A1c Calculated Osmolal ity Calcium 03/11/20 11:21 WBC Corrected WBC RBC Hgb Hct MCV MCH MCHC RDW Plt Count MPV Gran % Neut % (Auto) Lymph % (Auto) Stewart % (Auto) Eos % (Auto) Baso % (Auto) Neut # (Auto) Lymph # (Auto) Stewart # (Auto) Eos # (Auto) Baso # (Auto) Absolute Gran (aut o) Nucleated RBC % (a uto) Nucleated RBCs # Sodium Potassium Chloride Carbon Dioxide Anion Gap BUN Creatinine GFR Calculation Glucose POC Glucose Estimat Average Gl ucose 369 Hemoglobin A1c 14.5 H Calculated Osmolal ity Calcium Vitals: Last Vital Signs Temp 98.1 F 03/12/20 11:24 Pulse 74 03/12/20 11:24 Resp 18 03/12/20 11:24 BP 131/66 03/12/20 11:24 Pulse Ox 96 03/12/20 11:24 Discharge Plan Discharge Patient Disposition: Home Condition: Stable Prescriptions: New levofloxacin 750 mg tablet 750 mg PO DAILY 7 Days Qty: 7 RF: 0 famotidine 20 mg tablet 20 mg PO BID 42 Days Qty: 84 RF: 0 (DME) diabetic supplies, miscellan. Misc See Rx Instructions .ROUTE .MEDSUPPLY Qty: 1 RF: 0 Humulin 70/30 U-100 KwikPen 100 unit/mL (70-30) insulin pen 10 unit SUBCUT BID Qty: 15 RF: 0 Continued valacyclovir 1 gram tablet 1,000 mg PO PRN RF: 0 furosemide [Lasix] 40 mg tablet 40 mg PO BID PRN (Reason: Edema) RF: 0 hydromorphone [Dilaudid] 2 mg Tablet 2 mg PO TID PRN (Reason: Pain) RF: 0 diclofenac sodium 50 mg Tablet,Delayed Release (Dr/Ec) 50 mg PO TID PRN (Reason: unknown) RF: 0 pregabalin [Lyrica] 200 mg capsule 200 mg PO TID RF: 0 diazepam 5 mg tablet 5 mg PO BID PRN (Reason: Anxiety) RF: 0 alpha lipoic acid 200 mg Tablet 200 mg PO DAILY@12 RF: 0 biotin 10,000 mcg Tablet,Disintegrating 10,000 mcg PO DAILY@12 RF: 0 albuterol sulfate 2.5 mg /3 mL (0.083 %) Solution For Nebulization 2.5 mg INHALATION Q4H PRN (Reason: Shortness Of Breath) RF: 0 metformin 500 mg Tablet 500 mg PO BID RF: 0 torsemide 100 mg Tablet 100 mg PO DAILY PRN (Reason: Edema) RF: 0 ProAir HFA 90 mcg/actuation Hfa Aerosol Inhaler 2 puff INHALATION Q6H PRN (Reason: Shortness Of Breath) RF: 0 tamoxifen 20 mg tablet 20 mg PO QAM RF: 0 Refresh Relieva 0.5-0.9 % Drops 1 - 2 drp ophthalmic (eye) PRN RF: 0 Poly Antibiotic Ointment See Rx Instructions .ROUTE .COMPLEX RF: 0 clindamycin HCl 300 mg Capsule 300 mg PO TID Qty: 21 RF: 0 Discontinued glipizide 10 mg tablet 10 mg PO BID RF: 0 Discharge Orders: Discharge Order (Routine); Ordered 03/12/20 Ordered By: Lazaro Benitez Other Ambulatory Orders: Occupational Therapy Eval and Treat Outpatient (Order) Timeframe: 1 Week Facility: [facility] - Location: Occupational Therapy Ordered By: Aiden Sanchez Physical Therapy Eval and Treat Outpatient (Order) Timeframe: 3 Days Facility: [facility] - Location: Physical Therapy Ordered By: Aiden Sanchez Referrals: Lazaro Benitez MD [Physician] - 03/19/20 9:30 am Kaitlynn Lees MD [Physician] - 4-7 days (Please call [facility] Endocrinology clinic on Sunday to schedule a follow up appointment to be seen in 4-7 days.) Discharge Diet: Diabetic and Soft Mechanical Discharge Activity: Resume usual activity and Increase activity as tolerated Patient Instructions: Famotidine (By mouth), Levofloxacin (By mouth), Insulin NPH/Regular (Injection), Breast Cancer (DC), Acute Nausea and Vomiting (DC) Activity Restrictions/Additional Instructions: Keep incision covered with antibiotic cream and sterile dressings once daily Okay to shower Home health to perform lymphedema wraps Follow-up in 10 days for suture removal either in [place] or at our general surgery office Please continue to work with your primary care provider to optimize control of diabetes. Due to a number of factors your diabetes is not well controlled with A1c of 14.5. Please continue to arrange as discussed for assistance with checking blood glucose and administering insulin to avoid giving the wrong dose as discussed. If your blood glucose is less than 80, please decrease the next insulin dose in half. If glucose is less than 70, please take sugary snacks, and recheck glucose in 15-20 minutes. If your glucose is persistently low despite attempts to raise it, please hold insulin, and seek medical attention. Please complete additional 7 days of therapy with antibiotics, clindamycin and Levaquin. Please discuss with your cancer doctor and primary care doctor regarding incidentally noted sclerotic lesions in the vertebra T6 and T10, with concern for possible metastatic cancer spread. Please also discuss with your doctor regarding food sticking in the back of your throat. Continue for now mechanical soft diet as recommended in the hospital. If symptoms are not resolving, your doctor may refer you for additional assessment with barium swallow or other additional evaluation. Discharge Attestations Time Spent in Discharge Care*: less than 30 min Quality Metrics Clinical Quality Measures During this hospital stay, did patient experience: None Coding Level of Care Code Acute Accounts Payable Processor for [facility] Diagnoses Encounter for removal of tissue asphalt spreader operator of breast Z45.819 Diabetes mellitus E11.9
[2020-03-12] MEDS: neomycin-poly-bacitracin oint 0.9 gm Pkt 1 APPLIC TOPICAL (15:28)
[2020-03-12 16:00] VITALS: BP 147/54; PULSE 81; RESP 18; TEMP 36.8; O2SAT 95
--- NOTE | 2020-03-12 16:24 | PC.NURSE ---
deaccessed port to right upper chest, no bleeding or drainage noted. discharge instructions reviewed and denies further questions or concerns.
[2020-03-12 17:39] LABS: Glucose Point of Care 417 mg/dL (70-110)
--- NOTE | 2020-03-12 18:01 | PC.NURSE ---
Dr. Sanchez notified of fingerstick order to give the 16 units per sliding scale order and allow patient to eat then discharge as planned, patient insistent on discharge home, patient taken via wheelchair to private car for discharge, home medication and belongings returned to patient.
[2020-03-12 18:04] VITALS: BP 147/54; PULSE 81; RESP 18; TEMP 36.8; O2SAT 95
--- NOTE | 2020-03-12 22:31 | PM.PN ---
Subjective Subjective: Interval history: Redness and swelling of the left breast, as well as left arm today are with much improvement, with new resolution of erythema over the left arm, with only minimal faint patch and with some swelling superimposed on previous lymphedema remaining in the more proximal portion, but trending toward resolution. Left pectoralis bright and angry appearing erythema giving way now to subdued resolving erythema with significant increase of swelling. She is otherwise doing all right. Changed inconclusive diet has not had further issues swallowing, that her portion today was very small questioning the dysphagia diet. Discussed with her that this was done to help with swallowing and should not affect her portions. It appears later in the day she had requested an additional meal. During my second visit to the room appreciated some soup, however, it appears she could not receive a second meal, and he said that she would prefer to really return home and continue her recovery there. Given significant improvement, as well as source control, this may be a safe alternative, however, cautioned to remain vigilant and seek medical attention in case of any concerning symptoms. Please reassess for continued progress. We had quite an extensive discussion with her, separately with her daughter, and also again with her and her granddaughter regarding quite significant hyperglycemia and poorly controlled diabetes which appears to be due to multiple factors including recurrent steroid therapy with chemotherapy. With elevation of A1c to 14.5, with active infection, risk of recurrence of infection is very high, also has a port present in the right chest. Discussed this concern with her and her family, and also cautioned against any additional surgical procedures until her diabetes is well controlled due to very elevated risk of wound infection and nonhealing. She agrees that she would benefit from insulin therapy, and in fact states she used to be on insulin therapy in the past. However, expresses that she has difficulty with numbers, and that may very easily make mistakes with numbers. As such discussed with her concern regarding missed dosing of insulin, and we discussed risks including overdose and hypoglycemia which if severe enough may result in stroke, disability and even . She verbalized understanding. We ordered home health for her for assistance with glucose monitoring, insulin therapy, however, since this discussed with her and her family she requires twice daily assistance (with first discussed tighter glucose control with long-acting insulin and premeal insulin, however, she was unable to proceed with this option as she does not have somebody living with her who can assist her with such frequent dosing, and he is not able to stay with her family, and declined snf placement. She understands that twice daily dosing may be suboptimal), and her granddaughter who is a certified nursing assistant present at the time of the second visit will be coming in the mornings to check glucose and administer insulin, and per discussion with patient her ex-, who used to administer insulin during past, will be coming to check glucose and administer insulin in the evenings. Please follow-up on both infection treated during his hospitalization, as well as progressing diabetes control, adjust insulin therapy accordingly. Vitals/I&O/Wt Last Vital Signs Temp 98.2 F 03/12/20 18:04 Pulse 81 03/12/20 18:04 Resp 18 03/12/20 18:04 BP 147/54 03/12/20 18:04 Pulse Ox 95 03/12/20 18:04 03/12/20 03/12/20 03/12/20 06:59 14:59 22:59 Intake Total 420 / 2730 900 / 900 1240 / 2140 Output Total 700 / 700 Balance 410 / 2705 900 / 900 540 / 1440 Physical Exam Narrative: EXAM NARRATIVE: Daughter is accompanying her at bedside. Const: COMMON NORMALS: no acute distress, patient oriented x3 and alert GENERAL APPEARANCE: cooperative, comfortable and anxious NUTRITIONAL APPEARANCE: obese ORIENTATION/CONSCIOUSNESS: Yes awake HENMT: COMMON NORMALS: oropharynx normal Neck/C-Spine: COMMON NORMALS: no JVD Chest: OTHER: Significantly reduced erythema with near resolution in the left arm, faint patches noted more proximally, and significantly improving erythema to left pectoralis Resp: COMMON NORMALS: normal respiratory effort and clear to auscultation bilaterally AUSCULTATION: clear to auscultation bilaterally Cardio: COMMON NORMALS: no JVD, regular rhythm, S1 normal heart sound present, S2 normal heart sound present and No murmurs present (Cardio) RHYTHM: regular rhythm HEART SOUNDS: S1 normal heart sound present and S2 normal heart sound present GI: COMMON NORMALS: Normal to inspection, nondistended, normoactive bowel sounds present, Soft to palpation and non-tender PALPATION: Yes Soft to palpation Extremity: COMMON NORMALS: no joint enlargement and no pedal edema OTHER: Left arm swelling with very good improvement. Neuro: COMMON NORMALS: patient oriented x3 and moves all extremities SENSORIUM/ORIENTATION: Yes alert Skin: COMMON NORMALS: no rashes or lesions noted GENERAL SKIN EXAM: no rashes or lesions noted Data : 03/12/20 10:34 03/12/20 10:34 Micro: Microbiology 03/10/20 16:10 Gram Stain - Final Breast - #1 Anaerobic Culture - Preliminary Wound Culture - Preliminary Strep agalactiae - (group b) A&P Assessment and plan (1) Uncontrolled diabetes mellitus: Noted hyperglycemia in hospital. I discussed my concerns in detail with her and her family with regards to feeling better diabetes control. A1c is 14.5. On discharge she is agreeable with discontinuation of glipizide continuation of metformin, addition of insulin. Unfortunately due to difficulties with with numbers (she states for example that she is unable to tell the difference between 1, 10, 100), she requires assistance with each insulin dose, and more stringent regimens were not an option for her. When placement to snf recommended to allow establishing better glucose/diabetes control while recovering from infection with risk of recurrence of infection and wound nonhealing, she declines. Discussed concerns with her and her family. She agrees to have family assist her with twice daily insulin dosing. For now starting with 70/30 premixed insulin at 10 units twice daily, however, she and her family understand that she will need close follow-up and adjustment of insulin regimen to gain tighter control. Daughter states will assist her/encouraged her to keep with consistent carbohydrate diet and reduction in calorie intake. Again cautioned her against any additional surgical procedures due to high risk of infection with nonhealing until diabetes is better controlled. Status: Acute (2) Abscess of breast: Significant improvement. Discussed with her cultures are negative, however, given she has been on antibiotic prior to admission, possibility is that cultures were suppressed. She is agreeable to complete additional antibiotic course with coverage for MRSA with continuation of clindamycin, and coverage from gram-negative's with Levaquin. She has allergy to ciprofloxacin but states tolerated Levaquin well in the past. She is requesting to be discharged today. Discussed to maintain caution and return in case of any concerning symptoms. Status post removal of breast tissue adobe architect its port in the left chest. There is improvement in swelling, erythema over the left chest. Edema persists in the left arm. Lymphedema wraps in place. Requesting to elevate extremity. Please follow-up final culture results. Follow-up with surgery in office. Continue dressing changes. Status: Acute (3) Infection of breast tissue adobe architect: As above. Status: Acute (4) Infection due to Port-A-Cath: Infection of Port-A-Cath for breast tissue adobe architect. Right chest port without any problems currently. Follow-up blood cultures. Status: Acute (5) Hyponatremia: Improving. Status: Acute (6) Alkaline phosphatase elevation: With noted sclerotic lesions T6, T10. Discussed with her and her daughter. Normal GGT. No abdominal pain. Status: Acute (7) Lesion of vertebra: Incidentally noted sclerotic lesion in T6 and T10 vertebra. Discussed with patient and family and they are not aware of prior history of these. Perhaps these may be new. Discussed with her and family will need to follow-up with her oncologist. Status: Acute (8) Breast cancer: Status post left-sided mastectomy, chemo and radiation. Continues on tamoxifen. Follows with cancer team at [facility] in [place]. Left arm lymphedema wraps with outpatient PT. Status: Acute (9) Nausea and vomiting: Improved. On presentation with associated malaise. I see that she has diclofenac listed in her home medications. Will need to confirm if she has been taking this. May have either nausea vomiting associated with infection, or perhaps antibiotic. Otherwise may be NSAID induced gastritis. Continue famotidine. Symptomatic nausea control. Avoid NSAIDs. Status: Acute Additional A&P Information Oropharyngeal dysphagia: Reports food sticking in throat. Has not had this issues previously. Some of this may be secondary to vomiting preadmission. Also has had intubation for surgical procedure. Does not have dysphonia. On oral examination does not have any swelling in the mouth. Tongue is not swollen. Does have somewhat enlarged tonsils, although he does not have any pain or erythema or other signs of pharyngitis. We will switch diet to mechanical soft for now. Get speech therapy assessment. If not improving, consider additional evaluation by swallow study, thyroid ultrasound, etc. PADMA: Nightly CPAP. Takes valacyclovir as needed for herpes labialis Takes fluconazole as needed for fungal infections which she was getting during chemotherapy Attestations Medical Necessity Statement*: She declined to stay for further treatment the hospital, requesting to be discharged this evening. Coding Level of Care Code Acute [facility] Fwd Diagnoses Uncontrolled diabetes mellitus E11.65 Abscess of breast N61.1 Infection of breast tissue adobe architect T85.79XA Infection due to Port-A-Cath T80.219A Hyponatremia E87.1 Alkaline phosphatase elevation R74.8 Lesion of vertebra M89.9 Breast cancer C50.919 Nausea and vomiting R11.2
== END 2020-03-12 18:05 | disposition home or self-care (01) | DRG 908 ==
LOC: ER 13:06 → OPS 13:19 → MEDSURG 16:33
PROVIDERS: Internal Medicine; Admitting Provider Surgery; Emergency Provider Family Medicine; PCP Nurse Practitioner Family; Visit Provider Surgery
PROC: 0HPU0NZ Removal of Tissue Expander from Left Breast, Open Approach (ICD-10-PCS; principal; 2020-03-10 15:00)
DX: T85.79XA Infection and inflammatory reaction due to other internal prosthetic devices, implants and grafts, initial encounter (principal); T80.219A Unspecified infection due to central venous catheter, initial encounter; E87.1 Hypo-osmolality and hyponatremia; L03.313 Cellulitis of chest wall; M89.9 Disorder of bone, unspecified; C50.912 Malignant neoplasm of unspecified site of left female breast; N61.0 Mastitis without abscess; E11.9 Type 2 diabetes mellitus without complications; Z20.822 Contact with and (suspected) exposure to COVID-19; I10 Essential (primary) hypertension; J44.9 Chronic obstructive pulmonary disease, unspecified; K21.9 Gastro-esophageal reflux disease without esophagitis; Z86.73 Personal history of transient ischemic attack (TIA), and cerebral infarction without residual deficits; E03.9 Hypothyroidism, unspecified; Z95.1 Presence of aortocoronary bypass graft; Z90.12 Acquired absence of left breast and nipple; Y83.8 Other surgical procedures as the cause of abnormal reaction of the patient, or of later complication, without mention of misadventure at the time of the procedure; Y92.009 Unspecified place in unspecified non-institutional (private) residence as the place of occurrence of the external cause
CPT/HCPCS: 12345; 36415; 36416; 71260; 80048; 80053; 81003; 82962; 82977; 83036; 83605; 83880; 85025; 87040; 87070; 87075; 87205; 88300; 92523; 92610; 93971; 94660; 96372; 97140; 97161; 99282; J0131; J0330; J1100; J1170; J1815 ×2; J2405; J2543; J2704; J3010; J3370; J3490; J7030; J7040; J7050; Q9967

== ENCOUNTER 2020-05-11 08:38 | Emergency (ER) | payer MEDICAID, SELFPAY ==
[2020-05-11 08:44] VITALS: BP 160/92; PULSE 73; RESP 18; TEMP 36.7; O2SAT 97; BMI 43.8
--- NOTE | 2020-05-11 08:57 | ED_ITS ---
Documented by User: MARCOS Connell 05/11/20 12:51 HPI - Back Pain/Injury General: Chief Complaint: Back Pain/Injury Stated Complaint: lower back/side pain, bruising on leg Time Seen by Provider: 05/11/20 08:42 Source: patient Mode of arrival: wheelchair Limitations: no limitations History of Present Illness: HPI Narrative: Patient is a 59-year-old female who presents to ED today with a complaint of lower and right sided back/hip pain with radiation down into her right lower extremity. She states pain has been present over the past few days. She states that it has become excruciating. She states pain starts in her back and wraps down into her right lateral thigh and then around to her anterior knee. Patient is essentially wheelchair-bound. She has a history of stage III metastatic breast cancer. She has underwent chemotherapy and radiation for this and was told she was in remission however recently was told she has spread to several bony sites. It is my impression that patient is not wishing to pursue any further treatment for this. She states she has noticed some areas of ecchymosis to the medial aspect of her right upper thigh. She contacted her PCP at [facility] who recommended she come to the ED for evaluation. MD elicited complaint: back pain Pertinent past history: other (known bony mets) Onset (ago): day(s) Timing: constant Severity: severe Location: lumbar spine and right lower back Radiation: right upper leg Exacerbating factors: movement Relieving factors: none Associated symptoms: Deny abdominal pain, chills, dysuria, fatigue, fever(s), nausea, syncope, urinary urgency or vomiting Work related injury: No Review of Systems Const: Denies: fever(s), chills, body aches, fatigue or malaise Eyes: Denies: change in vision or blurry vision Card: Denies: chest pain, palpitations, irregular heart rhythm, lightheadedness, syncope or dyspnea on exertion Resp: Denies: dyspnea, productive cough or pain on inspiration GI: Denies: abdominal pain, nausea, vomiting, heartburn or diarrhea : Denies: flank pain, difficulty voiding, dysuria, urinary frequency, urinary urgency or urinary hesitancy Musc: Reports: back pain and extremity pain (R LE); Denies: neck pain, joint pain or joint swelling Skin/Breast: Reports: other (ecchymosis ); Denies: rash Neuro: Denies: headache(s), numbness in extremities, weakness in extremities or sensory changes PFSH ED PFSH: Medical History (Updated 05/11/20 @ 12:28 by MARCOS Connell) Benign essential hypertension Bilateral carpal tunnel syndrome Cerebrovascular accident Chronic fatigue COPD (chronic obstructive pulmonary disease) Diabetes mellitus DJD (degenerative joint disease) GERD (gastroesophageal reflux disease) Hyponatremia Hypothyroidism 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 07/07/2019 Dr. Emily Miller. Open release of the median nerve at the right wrist. Family History Father Cancer Diabetes Sister Cancer Diabetes Mother Diabetes Social History Smoking and tobacco status: never smoked Alcohol intake: current Alcohol intake frequency: other Lives independently: Yes Marital status: Current occupational status: disabled History of recent travel: No Physical Exam Const: COMMON NORMALS: patient oriented x3, no limitations and alert GENERAL APPEARANCE: cooperative and in distress (appears in pain) NUTRITIONAL APPEARANCE: obese morbidly obese ORIENTATION/CONSCIOUSNESS: Yes awake, Yes oriented to person, Yes oriented to place and Yes oriented to time HENMT: COMMON NORMALS: normocephalic and atraumatic HEAD & SCALP: normocephalic and atraumatic Resp: COMMON NORMALS: normal respiratory effort and clear to auscultation bilaterally AUSCULTATION: clear to auscultation bilaterally Cardio: COMMON NORMALS: regular rate and regular rhythm RATE: regular rate RHYTHM: regular rhythm Back/Pelvis: THORACIC SPINE/UPPER BACK: Yes normal to inspection and No thoracic spinal tenderness LUMBAR SPINE/LOWER BACK: Yes lumbar spinal tenderness (lower L spine) PELVIS: Yes no pain with anterior-posterior compression and Yes tenderness over symphysis pubis Extremity: GENERAL: Yes normal exam except as noted OTHER: pt has a few nickel sized areas of ecchymosis to her R medial thigh; she feels like leg is swollen but this is hard to appreciate due to body habitus; no edema; NV intact Neuro: COMMON NORMALS: patient oriented x3 SENSORIUM/ORIENTATION: Yes alert, Yes oriented to person, Yes oriented to place and Yes oriented to time Skin: NARRATIVE SKIN EXAM: see extremity assessment-otherwise normal exam Course Vital Signs: Vital signs: Vital Signs Temperature 98.1 F 05/11/20 08:44 Pulse Rate 71 05/11/20 11:05 Respiratory Rate 18 05/11/20 11:05 Blood Pressure 168/88 05/11/20 11:05 Pulse Oximetry 98 05/11/20 11:05 MDM - Back Pain/Injury MDM Narrative: Medical decision making narrative: Patient at this time is not wanting to undergo any further radiation or chemotherapy treatments. She does have a appointment with her oncologist (Dr. Hdz) on May 17. She will be given reports of her CT scans as well as a disc. She was made aware of her pathologic fractures to her L5 and her acetabulum/pubic ramus. Unlikely patient will have any form of orthopedic intervention for his fracture given the fact that she is already non-ambulatory, is obese, and is a non-controlled diabetic with active bony lesions. She states she does not want any form of orthopedic care at this time anyway. She has hospice coming to her home tomorrow and she states she will sign up for this. I contacted her pain management clinic and they stated if patient doesn't go on hospice then she could contact their office to schedule an appointment for further pain management care. Patient will be discharged home with pain meds from the ED today. Encouraged her to keep her oncology appointment so they may discuss all of her options and she can make a collaborative decision with them not to pursue further treatment. I have discussed case with Dr. Clark who agrees with current plan for patient. Lab Data: Labs: Lab Results 05/11/20 05/11/20 05/11/20 Range/Units 10:20 10:20 10:20 WBC 4.3 (4.0-10.0) 10^3/ uL RBC 4.84 (4.1-5.3) 10^6/u L Hgb 12.5 (11.5-15.3) g/dL Hct 40.3 (37.0-47.0) % MCV 83.3 (81-99) fL MCH 25.8 L (28.0-34.0) pg MCHC 31.0 (30.0-36.0) g/dL RDW 15.7 H (12.1-15.1) % Plt Count 217 (130-400) 10^3/c mm MPV 9.5 (7.4-10.4) fL Neut % (Auto) 60.4 % Lymph % (Auto) 29.1 % Hyde % (Auto) 8.1 % Eos % (Auto) 1.4 % Baso % (Auto) 0.5 % Neut # (Auto) 2.62 (1.8-7.7) 10^3/u L Lymph # (Auto) 1.3 (0.8-4.8) 10^3/u L Hyde # (Auto) 0.4 (0.2-0.9) 10^3/u L Eos # (Auto) 0.1 (0.0-0.8) 10^3/u L Baso # (Auto) 0.0 (0.0-0.1) 10^3/u L Nucleated RBC % (a uto) 0 % Nucleated RBCs # 0.0 /100WBC PT 13.00 (12.1-14.9) SECO NDS INR 0.96 (0.8-1.2) APTT 24.3 (23.9-36.7) SECO NDS Sodium 136 (136-145) mmol/L Potassium 4.4 (3.5-5.1) mmol/L Chloride 101 (98-107) mmol/L Carbon Dioxide 25 (22-29) mmol/L Anion Gap 14.4 (5-19) BUN 24 H (6-20) mg/dL Creatinine 0.8 (0.5-0.9) mg/dL GFR Calculation 73.7 L (90-130) mL/min Glucose 289 H (65-115) mg/dL Calculated Osmolal ity 297 H (285-295) mOsm/k g Calcium 8.7 (8.5-10.5) mg/dL Total Bilirubin 0.2 (0.15-1.2) mg/dL AST 13 (0-32) U/L ALT 15 (0-33) U/L Alkaline Phosphata se 104 (35-105) IU/L Total Protein 6.7 (6.6-8.7) g/dL Albumin 3.5 (3.5-5.2) g/dL Globulin 3.2 (1.3-4.6) g/dL Imaging Data^: US venous R LE: My impression: Per US tech-no DVT present CT pelvis : Radiologist's impression: [facility] [address] [place] [address] CT Scan Report Signed Patient: Jumana Reynaga #: [id number] : 2At#:[id number] Age/Sex: 59 / FADM Date: 05/11/20 Loc: ERRoom/Bed: Attending Dr: Ordering Provider/Ordering MD: Tiny Kenyon Date of Service: 05/11/20 Procedure(s): CT pelvis con [id number] Accession Number(s): [id number] Report Number: [id number] WS: [id number] CT pelvis TECHNIQUE: Noncontrast CT of the pelvis with coronal and sagittal reformatted images. CLINICAL INFORMATION: R hip pain; hx of cancer COMPARISON: CT abdomen pelvis September 03, 2019 DLP: 1576.[address] scans at [facility] use at least one of these dose optimization techniques: automated exposure control; mA and/or kV adjustment per patient size (includes targeted exams where dose is matched to clinical indication); or iterative reconstruction. FINDINGS: Multiple lytic and sclerotic metastatic lesions in the visualized bony pelvis. Expansile destructive lytic lesion involving the right anterior acetabulum extending into the pubic root and superior pubic ramus with pathologic fracture. Pathologic fracture extends into anterior acetabulum. Additional lesions involving the left ilium about the SI joint and left iliac wing near the anterior superior iliac spine. Additional smaller metastatic lesions in the midline sacrum. Sclerotic and lytic metastatic lesions involving the left posterior acetabulum extending into the inferior pubic ramus. Sclerotic lesion involving the intratrochanteric region left femur. Femoral heads are normal in appearance. No femoral head fractures. No femoral neck fractures. Additional sclerotic lesion involving the right ilium near the SI joint. Mild pathologic compression involving the superior endplate L5 with small superior endplate fracture cleft. Associated metastatic lesion in this region. No significant loss vertebral body height. CT/CT pelvis wo con [id number] IMPRESSION: 1. Multiple sclerotic and lytic metastatic lesions throughout the visualized bony pelvis. 2. Lytic lesion right anterior acetabulum with pathologic fracture. 3. Femoral head and femoral necks are normal in appearance. No femoral neck fractures. 4. Additional pathologic fracture involving the superior endplate L5 with metastatic lesion. Dictated By:Salvador Gusman MD Signed By:Salvador Gusman MDSigned Date/Time:05/11/20 1059 DD/ 1045 CT lumbar: Radiologist's impression: [address] [address] [address] Scan Report Signed Patient: Torin Reynagaantoine #: [id number] : 2At#:[id number] Age/Sex: 59 / FADM Date: 05/11/20 Loc: ERRoom/Bed: Attending Dr: Ordering Provider/Ordering MD: Tiny Kenyon Date of Service: 05/11/20 Procedure(s): CT lumbar spine wo con* [id number] Accession Number(s): [id number] Report Number: [id number] WS: [id number] CT LUMBAR SPINE TECHNIQUE: Noncontrast CT of the lumbar spine with coronal and sagittal reformatted images. CLINICAL INFORMATION: pain; hx of cancer COMPARISON: None. DLP: 1879.[address] scans at [facility] use at least one of these dose optimization techniques: automated exposure control; mA and/or kV adjustment per patient size (includes targeted exams where dose is matched to clinical indication); or iterative reconstruction. FINDINGS: Mild lumbar curve. L5 is partially sacralized with metastatic lesion in the anterior superior endplate with mild compression and small fracture cleft. Suggestion of a tiny lesion involving the L1 anterior superior corner. No other compression fractures. Slight anterolisthesis L4 on L5. Pelvic metastasis described on pelvis CT CT/CT lumbar spine wo con* [id number] IMPRESSION: 1. L5 is sacralized with metastatic lesion in the anterior superior endplate with mild compression. No significant loss vertebral body height. 2. Suggestion of additional tiny minuscule lesion L1 anterior superior corner. 3. Metastatic pelvic and sacral lesions described on pelvis CT Notified MARCOS Connell at 05/11/2020 11:04 AM. Dictated By:Salvador Gusman MD Signed By:Salvador Gusman MDSigned Date/Time:05/11/20 1107 DD/ 1059 Discharge Plan Discharge Patient Disposition: Home Clinical Impression: Pathologic fracture of acetabulum Qualifiers: Encounter type: initial encounter Laterality: right Qualified Code(s): M84.454A - Pathological fracture, pelvis, initial encounter for fracture Lumbar vertebral fracture, pathologic Qualifiers: Encounter type: initial encounter Qualified Code(s): M84.48XA - Pathological fracture, other site, initial encounter for fracture Breast cancer metastasized to bone Qualifiers: Laterality: unspecified laterality Qualified Code(s): C50.919 - Malignant neoplasm of unspecified site of unspecified female breast Condition: Stable Prescriptions: Continued Dilaudid 2 mg Tablet 2 mg PO TID PRN (Reason: Pain) Qty: 20 RF: 0 No Action valacyclovir 1 gram tablet 1,000 mg PO PRN RF: 0 furosemide [Lasix] 40 mg tablet 40 mg PO BID PRN (Reason: Edema) RF: 0 diclofenac sodium 50 mg Tablet,Delayed Release (Dr/Ec) 50 mg PO TID PRN (Reason: unknown) RF: 0 pregabalin [Lyrica] 200 mg capsule 200 mg PO TID RF: 0 diazepam 5 mg tablet 5 mg PO BID PRN (Reason: Anxiety) RF: 0 alpha lipoic acid 200 mg Tablet 200 mg PO DAILY@12 RF: 0 biotin 10,000 mcg Tablet,Disintegrating 10,000 mcg PO DAILY@12 RF: 0 albuterol sulfate 2.5 mg /3 mL (0.083 %) Solution For Nebulization 2.5 mg INHALATION Q4H PRN (Reason: Shortness Of Breath) RF: 0 metformin 500 mg Tablet 500 mg PO BID RF: 0 torsemide 100 mg Tablet 100 mg PO DAILY PRN (Reason: Edema) RF: 0 ProAir HFA 90 mcg/actuation Hfa Aerosol Inhaler 2 puff INHALATION Q6H PRN (Reason: Shortness Of Breath) RF: 0 tamoxifen 20 mg tablet 20 mg PO QAM RF: 0 Refresh Relieva 0.5-0.9 % Drops 1 - 2 drp ophthalmic (eye) PRN RF: 0 Poly Antibiotic Ointment See Rx Instructions .ROUTE .COMPLEX RF: 0 (DME) diabetic supplies, miscellan. Misc See Rx Instructions .ROUTE .MEDSUPPLY Qty: 1 RF: 0 Humulin 70/30 U-100 KwikPen 100 unit/mL (70-30) insulin pen 10 unit SUBCUT BID Qty: 15 RF: 0 clindamycin HCl 300 mg Capsule 300 mg PO TID Qty: 21 RF: 0 Discharge Orders: Discharge ED (Routine); Ordered 05/11/20 Ordered By: Tiny Kenyon Referrals: Luis Eduardo Huerta NP [Primary Care Provider] - Activity Restrictions/Additional Instructions: I have contacted [facility] so they are updated on findings today. I have spoken to pain management. They recommend you call their office for an appointment if needed. I have given you copies of your radiology reports as well as a disc. Please bring these with you to your oncology appointment on May 17. Coding Level of Care Code ED Water Filterer Helper for Chg Fwd Exam Detailed Documented by User: Wiley Clark DO 05/11/20 16:11 HPI - Back Pain/Injury General: Chief Complaint: Back Pain/Injury Stated Complaint: lower back/side pain, bruising on leg Time Seen by Provider: 05/11/20 08:42 COUNTS INCLUDE 234 BEDS AT THE [facility] ED PFSH: Medical History (Updated 05/11/20 @ 12:28 by MARCOS Connell) Benign essential hypertension Bilateral carpal tunnel syndrome Cerebrovascular accident Chronic fatigue COPD (chronic obstructive pulmonary disease) Diabetes mellitus DJD (degenerative joint disease) GERD (gastroesophageal reflux disease) Hyponatremia Hypothyroidism 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 07/07/2019 Dr. Emily Miller. Open release of the median nerve at the right wrist. Family History Father Cancer Diabetes Sister Cancer Diabetes Mother Diabetes Social History Smoking and tobacco status: never smoked Alcohol intake: current Alcohol intake frequency: other Lives independently: Yes Marital status: Current occupational status: disabled History of recent travel: No Course Vital Signs: Vital signs: Vital Signs Temperature 98.1 F 05/11/20 08:44 Pulse Rate 71 05/11/20 11:05 Respiratory Rate 18 05/11/20 11:05 Blood Pressure 168/88 05/11/20 11:05 Pulse Oximetry 98 05/11/20 11:05 MDM - Back Pain/Injury MDM Narrative: Medical decision making narrative: As discussed and reviewed with MARCOS Connell. Patient does not wish to pursue any further treatment at this point she is nonambulatory due to to her weight. She not can be a candidate for any intervention on the surgical side for the fractures and she does not want to do this. She is going to be discharged home from the emergency room with palliative care and hospice. She plans to follow-up with her oncologist but does not plan to reconsider any treatments just wants to review what options she might have. Given his particular set of circumstances think it is appropriate the patient be discharged to hospice. Lab Data: Labs: Lab Results 05/11/20 05/11/20 05/11/20 Range/Units 10:20 10:20 10:20 WBC 4.3 (4.0-10.0) 10^3/ uL RBC 4.84 (4.1-5.3) 10^6/u L Hgb 12.5 (11.5-15.3) g/dL Hct 40.3 (37.0-47.0) % MCV 83.3 (81-99) fL MCH 25.8 L (28.0-34.0) pg MCHC 31.0 (30.0-36.0) g/dL RDW 15.7 H (12.1-15.1) % Plt Count 217 (130-400) 10^3/c mm MPV 9.5 (7.4-10.4) fL Neut % (Auto) 60.4 % Lymph % (Auto) 29.1 % Hyde % (Auto) 8.1 % Eos % (Auto) 1.4 % Baso % (Auto) 0.5 % Neut # (Auto) 2.62 (1.8-7.7) 10^3/u L Lymph # (Auto) 1.3 (0.8-4.8) 10^3/u L Hyde # (Auto) 0.4 (0.2-0.9) 10^3/u L Eos # (Auto) 0.1 (0.0-0.8) 10^3/u L Baso # (Auto) 0.0 (0.0-0.1) 10^3/u L Nucleated RBC % (a uto) 0 % Nucleated RBCs # 0.0 /100WBC PT 13.00 (12.1-14.9) SECO NDS INR 0.96 (0.8-1.2) APTT 24.3 (23.9-36.7) SECO NDS Sodium 136 (136-145) mmol/L Potassium 4.4 (3.5-5.1) mmol/L Chloride 101 (98-107) mmol/L Carbon Dioxide 25 (22-29) mmol/L Anion Gap 14.4 (5-19) BUN 24 H (6-20) mg/dL Creatinine 0.8 (0.5-0.9) mg/dL GFR Calculation 73.7 L (90-130) mL/min Glucose 289 H (65-115) mg/dL Calculated Osmolal ity 297 H (285-295) mOsm/k g Calcium 8.7 (8.5-10.5) mg/dL Total Bilirubin 0.2 (0.15-1.2) mg/dL AST 13 (0-32) U/L ALT 15 (0-33) U/L Alkaline Phosphata se 104 (35-105) IU/L Total Protein 6.7 (6.6-8.7) g/dL Albumin 3.5 (3.5-5.2) g/dL Globulin 3.2 (1.3-4.6) g/dL Discharge Plan Discharge Patient Disposition: Home Clinical Impression: Pathologic fracture of acetabulum Qualifiers: Encounter type: initial encounter Laterality: right Qualified Code(s): M84.454A - Pathological fracture, pelvis, initial encounter for fracture Lumbar vertebral fracture, pathologic Qualifiers: Encounter type: initial encounter Qualified Code(s): M84.48XA - Pathological fracture, other site, initial encounter for fracture Breast cancer metastasized to bone Qualifiers: Laterality: unspecified laterality Qualified Code(s): C50.919 - Malignant neoplasm of unspecified site of unspecified female breast Condition: Stable Prescriptions: Continued Dilaudid 2 mg Tablet 2 mg PO TID PRN (Reason: Pain) Qty: 20 RF: 0 No Action valacyclovir 1 gram tablet 1,000 mg PO PRN RF: 0 furosemide [Lasix] 40 mg tablet 40 mg PO BID PRN (Reason: Edema) RF: 0 diclofenac sodium 50 mg Tablet,Delayed Release (Dr/Ec) 50 mg PO TID PRN (Reason: unknown) RF: 0 pregabalin [Lyrica] 200 mg capsule 200 mg PO TID RF: 0 diazepam 5 mg tablet 5 mg PO BID PRN (Reason: Anxiety) RF: 0 alpha lipoic acid 200 mg Tablet 200 mg PO DAILY@12 RF: 0 biotin 10,000 mcg Tablet,Disintegrating 10,000 mcg PO DAILY@12 RF: 0 albuterol sulfate 2.5 mg /3 mL (0.083 %) Solution For Nebulization 2.5 mg INHALATION Q4H PRN (Reason: Shortness Of Breath) RF: 0 metformin 500 mg Tablet 500 mg PO BID RF: 0 torsemide 100 mg Tablet 100 mg PO DAILY PRN (Reason: Edema) RF: 0 ProAir HFA 90 mcg/actuation Hfa Aerosol Inhaler 2 puff INHALATION Q6H PRN (Reason: Shortness Of Breath) RF: 0 tamoxifen 20 mg tablet 20 mg PO QAM RF: 0 Refresh Relieva 0.5-0.9 % Drops 1 - 2 drp ophthalmic (eye) PRN RF: 0 Poly Antibiotic Ointment See Rx Instructions .ROUTE .COMPLEX RF: 0 (DME) diabetic supplies, miscellan. Misc See Rx Instructions .ROUTE .MEDSUPPLY Qty: 1 RF: 0 Humulin 70/30 U-100 KwikPen 100 unit/mL (70-30) insulin pen 10 unit SUBCUT BID Qty: 15 RF: 0 clindamycin HCl 300 mg Capsule 300 mg PO TID Qty: 21 RF: 0 Discharge Orders: Discharge ED (Routine); Ordered 05/11/20 Ordered By: Tiny Kenyon Referrals: Luis Eduardo Huerta NP [Primary Care Provider] - Activity Restrictions/Additional Instructions: I have contacted [facility] so they are updated on findings today. I have spoken to pain management. They recommend you call their office for an appointment if needed. I have given you copies of your radiology reports as well as a disc. Please bring these with you to your oncology appointment on May 17. Coding Level of Care Code ED Water Filterer Helper for Chg Fwd Exam Detailed
--- NOTE | 2020-05-11 09:16 | CT_ITS ---
WS: [id number] CT pelvis TECHNIQUE: Noncontrast CT of the pelvis with coronal and sagittal reformatted images. CLINICAL INFORMATION: R hip pain; hx of cancer COMPARISON: CT abdomen pelvis September 03, 2019 DLP: 1576.[address] scans at [facility] use at least one of these dose optimization techniques: automat ed exposure control; mA and/or kV adjustment per patient size (includes targeted exams where dose is matched to clinical indication); or iterative reconstruction. FINDINGS: Multiple lytic and sclerotic metastatic lesions in the visualized bony pelvis. Expansile destructive lytic lesion involving the right anterior acetabulum extending into the pubic root and superior pubic ramus with pathologic fracture. Pathologic fracture extends into anterior acetabulum. Additional lesions involving the left ilium about the SI joint and left iliac wing near the anterior superior iliac spine. Additional smaller metastatic lesions in the midline sacrum. Sclerotic and lyti c metastatic lesions involving the left posterior acetabulum extending into the inferior pubic ramus. Sclerotic lesion involving the intratrochanteric region left femur. Femoral heads are normal in negar earance. No femoral head fractures. No femoral neck fractures. Additional sclerotic lesion involving the right ilium near the SI joint. Mild pathologic compression involving the superior endplate L5 wit h small superior endplate fracture cleft. Associated metastatic lesion in this region. No significant loss vertebral body height. CT/CT pelvis wo con [id number] IMPRESSION: 1. Multiple sclerotic and lytic metastatic lesions throughout the visualized b jonathan pelvis. 2. Lytic lesion right anterior acetabulum with pathologic fracture. 3. Femoral head and femoral necks are normal in appearance. No femoral neck fr actures. 4. Additional pathologic fracture involving the superior endplate L5 with meta static lesion.
--- NOTE | 2020-05-11 09:16 | USCV_ITS ---
Liliam Reynaga Age: 59 Gender: F : 1960 Exam Date: 05/11/2020 09:55 Ordering Phys: Tiny Kenyon Technologist: Florencia Roberto Exam Location: [facility] [place] Indication: RLE PAIN AND SWELLING HISTORY: Lower extremity pain. Lower extremity swelling. PROCEDURES: Venous duplex imaging was performed in only the right lower extremity. Bilaterally, the common femoral, superficial femoral, profunda femoral, popliteal, posterior tibial, greater saphenous veins, and the peroneal trunk were identified and interrogated in the standard fashion. These veins were found to be easily compressible with spontaneous blood flow. No evidence of insufficiency or thrombus noted. On the left side, the common femoral, superficial femoral, profunda femoral, popliteal, posterior tibial, greater saphenous veins, and the peroneal trunk were identified and interrogated in the standard fashion. These veins were found to be easily compressible with spontaneous blood flow. No evidence of insufficiency or thrombus noted. Serial compression, augmentation maneuvers, and spectral Doppler flow evaluation were performed. FINDINGS: Examination was technically limited due to body habitus. No evidence of DVT seen in any vessel visualized at this time. CONCLUSIONS No evidence of right lower extremity DVT. Salvador Gusman MD (Electronically Signed) Final Date: 11 May 2020 17:24 S
--- NOTE | 2020-05-11 09:16 | CT_ITS ---
WS: [id number] CT LUMBAR SPINE TECHNIQUE: Noncontrast CT of the lumbar spine with coronal and sagittal reformatted images. CLINICAL INFORMATION: pain; hx of cancer COMPARISON: None. DLP: 1879.[address] scans at [facility] use at least one of these dose optimization techniques: automat ed exposure control; mA and/or kV adjustment per patient size (includes targeted exams where dose is matched to clinical indication); or iterative reconstruction. FINDINGS: Mild lumbar curve. L5 is partially sacralized with metastatic lesion in the anterior superior endplat e with mild compression and small fracture cleft. Suggestion of a tiny lesion involving the L1 anteri or superior corner. No other compression fractures. Slight anterolisthesis L4 on L5. Pelvic metastasis described on pelvis CT CT/CT lumbar spine wo con* [id number] IMPRESSION: 1. L5 is sacralized with metastatic lesion in the anterior superior endplate w ith mild compression. No significant loss vertebral body height. 2. Suggestion of additional tiny minuscule lesion L1 anterior superior corner. 3. Metastatic pelvic and sacral lesions described on pelvis CT Notified MARCOS Connell at 05/11/2020 11:04 AM.
[2020-05-11 09:50] VITALS: RESP 18
[2020-05-11] MEDS: HYDROmorphone 1 mg/mL INJ 1 mL SUBCUT (09:50)
[2020-05-11 10:05] VITALS: BP 168/98; PULSE 79; RESP 18; O2SAT 98
[2020-05-11 10:26] LABS: Basophils % 0.5 %; Eosinophils # 0.1 10^3/uL (0.0-0.8); Eosinophils % 1.4 %; Hematocrit 40.3 % (37.0-47.0); Hemoglobin 12.5 g/dL (11.5-15.3); Lymphocytes # 1.3 10^3/uL (0.8-4.8); Lymphocytes % 29.1 %; Mean Corpuscular Hemoglobin 25.8 pg (28.0-34.0); Mean Corpuscular Volume 83.3 fL (81-99); Mean Platelet Volume 9.5 fL (7.4-10.4); Monocytes # 0.4 10^3/uL (0.2-0.9); Monocytes % 8.1 %; Neutrophils # 2.62 10^3/uL (1.8-7.7); Neutrophils % 60.4 %; Nucleated Red Blood Cells % 0 %; Platelet Count 217 10^3/cmm (130-400); Red Blood Count 4.84 10^6/uL (4.1-5.3); Red Cell Distribution Width 15.7 % (12.1-15.1); White Blood Count 4.3 10^3/uL (4.0-10.0)
[2020-05-11 10:37] LABS: INR 0.96 (0.8-1.2)
[2020-05-11 10:38] LABS: Partial Thromboplastin Time 24.3 SECONDS (23.9-36.7)
[2020-05-11 10:46] LABS: Alanine Aminotransferase 15 U/L (0-33); Albumin Level 3.5 g/dL (3.5-5.2); Alkaline Phosphatase 104 IU/L (35-105); Anion Gap 14.4 (5-19); Aspartate Amino Transferase 13 U/L (0-32); Blood Urea Nitrogen 24 mg/dL (6-20); Calcium 8.7 mg/dL (8.5-10.5); Carbon Dioxide 25 mmol/L (22-29); Chloride 101 mmol/L (98-107); Globulin 3.2 g/dL (1.3-4.6); Glomerular Filtration Rate 73.7 mL/min (90-130); Glucose 289 mg/dL (65-115); Osmolality Calculated 297 mOsm/kg (285-295); Potassium 4.4 mmol/L (3.5-5.1); Sodium 136 mmol/L (136-145); Total Bilirubin 0.2 mg/dL (0.15-1.2); Total Protein 6.7 g/dL (6.6-8.7)
[2020-05-11 11:05] VITALS: BP 168/88; PULSE 71; RESP 18; O2SAT 98
[2020-05-11] MEDS: HYDROmorphone 1 mg/mL INJ 1 mL IVP (13:00)
== END 2020-05-11 13:04 | disposition home or self-care (01) ==
PROVIDERS: Emergency Provider Physician Assistant; PCP Nurse Practitioner Family
DX: M84.454A Pathological fracture, pelvis, initial encounter for fracture (principal); M84.48XA Pathological fracture, other site, initial encounter for fracture; C50.919 Malignant neoplasm of unspecified site of unspecified female breast; Z79.4 Long term (current) use of insulin; I10 Essential (primary) hypertension; Z86.73 Personal history of transient ischemic attack (TIA), and cerebral infarction without residual deficits; J44.9 Chronic obstructive pulmonary disease, unspecified; E11.9 Type 2 diabetes mellitus without complications; Z95.1 Presence of aortocoronary bypass graft
CPT/HCPCS: 36415; 72131; 72192; 80053; 85025; 85610; 85730; 93971; 96374; 99283; J1170